=== PATIENT | female | born 1930 | race Caucasian/White ===

== ENCOUNTER 2018-04-05 02:34 | Inpatient (IN) | payer MEDICARE ==
[2018-04-05] VITALS (9 sets, daily range): BP systolic 122–164; BP diastolic 41–85
[~2018-04-05] VITALS: Ht 162.5 cm; Wt 67.2 kg
--- NOTE | ~2018-04-05 | PR ---
[place], [place] PROGRESS NOTE NAME: DARRON GARCIA UNIT #: [id number] ROOM: [facility] DOCTOR: BETY MILAN MD BIRTHDATE: [birth year] DOS: SUBJECTIVE: The patient is about the same, does not have any new complaints. She did have a fairly good night. Unfortunately, the vertebroplasty was not performed. OBJECTIVE: VITAL SIGNS: Graphic trend shows pressure 147/47, pulse of 58, respirations 18, temperature 97.5. LUNGS: Diminished breath sounds, clear. HEART: Regular with PVCs. ABDOMEN: Obese, soft. EXTREMITIES: Without any edema. Tenderness along the thoracic spine area. ASSESSMENT AND PLAN: 1. T7 compression fracture, which is new. Attempted vertebroplasty, but this was unsuccessful. Discussed with Dr. Plascencia in detail. We will try to arrange for vertebroplasty as an outpatient in another facility. 2. Enterobacter aerogenes. The patient is on Rocephin. 3. Adult failure to thrive, awaiting placement to rehab center. BETY MILAN MD CM:PNTRANS 0836 BETY MILAN MD 04/07/1843 interface
--- NOTE | ~2018-04-05 | DS ---
[place], [place] DISCHARGE SUMMARY NAME: DARRON GARCIA UNIT #: [id number] ROOM: [facility] DOCTOR: BETY MILAN MD BIRTHDATE: [birth year] DOS: To be discharged on 04/08/2018. HOSPITAL COURSE: The patient is [facility]. She is 87 years old, was going to the bathroom at night, had a fall and injured her back. She came into the Emergency Room, was evaluated and was diagnosed with the possibility of compression fracture and was admitted. After admission, she had an MRI of her back, which showed an acute T7 compression fracture. Dr. Plascencia was consulted. The patient was taken for a vertebroplasty, this was attempted, but was unsuccessful. The patient also had urine culture done, which showed Enterobacter aerogenes, which is sensitive to ceftriaxone that she is on. She is not having any new complaints. The pain is under fairly good control and her anxiety is also under control. Blood sugars are also not too bad, in the low 100s. The patient is stable and social service and PT/OT has been consulted and the patient has been accepted in [facility]. She will go there on Tuesday. My office will make arrangements for her to see Dr. Godinez as outpatient in [place] for vertebroplasty. The office will inform you about the exact date. DISCHARGE MEDICATIONS: [place] 7.5 one tablet twice a day, Xanax 0.25 twice a day p.r.n., Ceftin 250 twice daily for 5 days, metoprolol 25 b.i.d., aspirin 81 daily, lisinopril 20 daily, hydrochlorothiazide 12.5 daily, metformin 1000 b.i.d., citalopram 10 daily, pioglitazone 15 daily, glimepiride 1 mg daily, amlodipine 2.5 mg daily. DIET: ADA 1800, blood sugars to be checked daily. PT, OT consultation. Lidocaine patch for local application to the thoracic area. [place], [place] DISCHARGE SUMMARY NAME: DARRON GARCIA UNIT #: [id number] ROOM: [facility] DOCTOR: BETY MILAN MD BIRTHDATE: [birth year] BETY MILAN MD CM:LINDA [id number] BETY MILAN MD 04/17/18 1040 interface
--- NOTE | ~2018-04-05 | WRIGHTHP ---
[place], [place] PATIENT HISTORY AND PHYSICAL EXAM NAME: DARRON GARCIA UNIT #: [id number] ROOM: 501 DOCTOR: BETY MILAN MD BIRTHDATE: [birth year] DOS: 04/05/2018 HISTORY OF PRESENT ILLNESS: This patient is an 87-year-old. She was getting up and going to the bathroom and she fell down, was on the floor and had to call the family to get her up. She was brought to the Emergency Room and was admitted. She had a lot of back pain and when she came to the Emergency Room they noted that she had a possibility of T8 compression fracture. She does not have any complaints of chest pains, palpitations, abdominal pain, nausea, emesis. PAST MEDICAL HISTORY: Significant for; 1. Benign hypertension. 2. Type 2 diabetes mellitus. 3. Primary osteoarthritis, bilateral knee and hip replacements. 4. Generalized anxiety disorder. MEDICATIONS: She is on are glipizide, glimepiride, citalopram, hydrochlorothiazide, lisinopril, Anthony 7.5, metformin 1000 b.i.d., metoprolol 25 b.i.d., Actos 15 daily, simvastatin 40 daily. SOCIAL HISTORY: Nonsmoker. Does not use any alcohol. PHYSICAL EXAMINATION: GENERAL: She is awake and alert and oriented and some mild distress because of back pain. VITAL SIGNS: Graphic trend shows pressure 132/76, pulse of 70, respirations 18. LUNGS: Diminished breath sounds, clear. HEART: Regular. ABDOMEN: Obese, soft, nontender. EXTREMITIES: Without any edema. ASSESSMENT AND PLAN: 1. Possibility of an acute lumbago from a possibility of a T8 compression fracture. Awaiting further testing including MRI and possible vertebroplasty. 2. Type 2 diabetes mellitus. Discontinue glyburide. Continue Amaryl, Actos and check blood sugars q.i.d. with coverage. 3. Adult failure to thrive, may require PT, OT, but we will do that once we figure out whether there is an acute fracture or not. [place], [place] PATIENT HISTORY AND PHYSICAL EXAM NAME: DARRON GARCIA UNIT #: [id number] ROOM: [facility] DOCTOR: BETY MILAN MD BIRTHDATE: [birth year] BETY MILAN MD CM:DEBIS:PATIENT HISTORY AND PHYSICAL EXAMINATION 2 5 BETY MILAN MD 04/05/18955 interface
--- NOTE | ~2018-04-05 | PR ---
[place], [place] PROGRESS NOTE NAME: DARRON GARCIA UNIT #: [id number] ROOM: [facility] DOCTOR: BETY MILAN MD BIRTHDATE: [birth year] DOS: 04/06/2018 SUBJECTIVE: The patient is very emotional and teary eyed today. She did not get her Xanax as per family members. OBJECTIVE: VITAL SIGNS: Graphic trend shows a pressure of 119/70, pulse of 70, respirations 16, temperature 98.5. LUNGS: Diminished breath sounds. HEART: Regular. ABDOMEN: Obese, soft, nontender. EXTREMITIES: Without any edema. MICROBIOLOGY: Urine culture, heavy Gram-negative bacteria. RADIOLOGY: Thoracic spine x-ray, T8 compression fracture. Awaiting the MRI today. ASSESSMENT AND PLAN: 1. T8 compression fracture for vertebroplasty. Consultation of Interventional Radiology was ordered. 2. Benign hypertension, controlled. 3. Type 2 diabetes mellitus. Check blood sugars twice daily and coverage. 4. Generalized anxiety disorder. Start Xanax. BETY MILAN MD CM:PNTRANS 0845 2 BETY MILAN MD 04/07/184 interface
--- NOTE | ~2018-04-05 | EKG ---
[place], [place] ELECTROCARDIOGRAM REPORT NAME: DARRON GARCIA UNIT #: [id number] ROOM: [facility] DOCTOR: PIEROANY DRAFT REPORT BIRTHDATE: [birth year] [facility] Test Date: 2018-04-05 Test Time: 03:26:30 Pat Name: DARRON GARCIA Department: Room: [facility] Gender: F Grievance And Appeals Specialist: Lizbeth Farrar : 1930 Requested By: DILLAN RAINES Order Number: [id number] Reading MD: Nolan Dixon MD Measurements Intervals Madeline Rate: 54 P: 28 RI: 164 QRS: -15 QRSD: 94 T: 7 QT: 433 QTc: 411 Interpretive Statements Sinus rhythm Abnormal R-wave progression, early transition Left ventricular hypertrophy Electronically Signed On 04-05-2018 17:30:39 PST by Nolan Dixon MD CM:EKGRPT:ELECTROCARDIOGRAM REPORT [id number] DILLAN RAINES MD EPIPHANY DRAFT REPORT DILLAN RAINES MD
[~2018-04-05 02:34] MED LIST: ACETAMINOPHEN PO; ACIDOPHILUS1 CAP PO; ACYCLOVIR800 MG PO; AMARYL4 MG PO; AMOXIL500 MG PO; ASPIRIN81 M1 PO; CEFUROXIME AXE250 MG PO; CIPRO500 MG PO; CITALOPRAM10 MG PO; DAYPRO600 M1 PO; FERRACTIV IRON1 EACH PO; FLOMAX0.4 MG PO; GLIPIZIDE10 M2 PO; GLYBURIDE5 MG PO; HYDR12.5C PO; HYDROCODONE PO; LEVAQUIN750 MG PO; LISINOPRIL/HCTZ1 TA1 PO; LISINOPRIL/HCTZ1 TA4 PO; METFORMIN500 MG PO; METOPROLOL25 MG PO; MICRONASE5 MG PO; MULTI VITAMINS1 TAB PO; NORCO 325 MG-51 TAB PO; OSCAL,OYSTER S500 MG PO; PIOGLITAZONE HC15 MG PO; PRILOSEC20 M2 PO; PRINIVIL20 MG PO; SIMVASTATIN40 MG PO; TRAZODONE50 MG PO; XANAX0.5 MG PO
[2018-04-05 03:44] LABS: BASO % 0.2 % (0.0-1.0); EOS # 0.2 10*3/uL (0.0-0.4); HEMATOCRIT 35.2 % (37.0-47.0); HEMOGLOBIN 11.3 g/dl (12.0-16.0); LYMPH # 0.7 10*3/uL (1.3-4.4); LYMPH % 7.5 % (27.0-41.0); MEAN CELL VOLUME 93.1 fl (81.0-99.0); MEAN CORPUSCULAR HGB 29.9 pg (27.0-31.0); MEAN CORPUSCULAR HGB CONC 32.1 g/dl (33.0-37.0); MEAN PLATELET VOLUME 11.2 fl (9.6-12.3); MONO # 0.5 10*3/uL (0.1-1.0); MONO % 5.8 % (3.0-9.0); NEUT # 7.6 10*3/uL (2.3-7.9); NEUT % 83.8 % (47.0-73.0); PLATELET COUNT AUTOMATED 188 10*3/uL (130-400); RED BLOOD COUNT 3.78 10*6/uL (4.10-5.10); RED CELL DISTRI WIDTH 14.3 % (0-14.5); WHITE BLOOD COUNT 9.1 10*3/uL (4.8-10.8)
[2018-04-05 03:54] LABS: ACT PARTIAL THROMBO TIME 22.3 SECONDS (20.8-31.5); INTERNATIONAL NORM RATIO 0.9 (2.0-3.5)
[2018-04-05 04:03] LABS: ALBUMIN 3.7 gm/dl (3.1-4.5); ALKALINE PHOSPHATASE 44 U/L (45-117); BUN 32 mg/dl (7-24); CHLORIDE 109 mmol/L (98-107); LIPASE 279 U/L (73-393); SGOT/AST 17 IU/L (3-35); SGPT/ALT 22 U/L (12-78); SODIUM 143 mmol/L (136-145)
[2018-04-05 04:04] LABS: TROPONIN I < 0.015 ng/ml (<0.045)
--- NOTE | 2018-04-05 04:23 | NUR ---
PATIENT IN BED AWAKE AND TALKING WITH FAMILY AT BEDSIDE. VSS. RN WILL CONT TO MONITOR
[2018-04-05 04:41] LABS: BILIRUBIN NEGATIVE (NEGATIVE); BLOOD NEGATIVE (NEGATIVE); CLARITY CLEAR (CLEAR); COLOR YELLOW (YELLOW); GLUCOSE NEGATIVE (NEGATIVE); KETONE NEGATIVE (NEGATIVE); LEUKO ESTERASE TRACE (NEGATIVE); NITRITE POSITIVE (NEGATIVE); SPECIFIC GRAVITY 1.025 (1.005-1.030); UROBILINOGEN 0.2 E.U./dl (0.2-1.0)
[2018-04-05 05:14] LABS: BACTERIA 2+; RBC 0-2 rbc/hpf (0-2)
--- NOTE | 2018-04-05 07:34 | NUR ---
REPORT RECEIVED AT 0710 FROM NAVEED REYES. THIS PT IS AWAKE AND ALERT. HER COLOR IS FAIR,SKIN W/D. RESPIRATIONS ARE NON-LABORED. SHE TELLS ME THAT HER UPPER BACK PAIN HAS IMPROVED AFTER RX HAS BEEN GIVEN. SHE WILL BE ADMITTED,WAITING FOR BED PLACEMENT. PT IS AWARE OF THIS. MARGARET REYES
--- NOTE | 2018-04-05 08:45 | NUR ---
A 87YO FEMALE, admitted to , under the services of BETY Cooper MD with a diagnosis of SYNCOPE. Chief complaint is FELL AT HOME, PAIN BETWEEN SHOULDER BLADES, DIZZY/SOB WHEN WALKING. Patient arrived via stretcher from ER. Monitor applied. Initial assessment completed. Vital signs taken and recorded. BETY COOPER MD notified of admission to the unit. Orders received. See assessment for past medical history, medications and allergies. Patient and/or family oriented to unit. [facility] reviewed. Clothing/patient valuable form completed. RIAN NICE
--- NOTE | 2018-04-05 10:12 | NUR ---
MEDICATED WITH PRN PO NORCO FOR LOWER BACK PAIN.
--- NOTE | 2018-04-05 12:51 | NUR ---
PRN PO NORCO EFFECTIVE, PER PATIENT.
[2018-04-05] MEDS ORDERED: AMARYL1 M1 PO (13:15)
[2018-04-05] MEDS ORDERED: 'XANAX1 MG PO (13:16)
[2018-04-05] MEDS ORDERED: NORVASC2.5 MG PO (13:17)
--- NOTE | 2018-04-05 13:59 | NUR ---
MEDICATED WITH PRN PO NORCO FOR BACK PAIN.
--- NOTE | 2018-04-05 15:09 | NUR ---
PRN PO NORCO EFFECTIVE, PER PATIENT.
--- NOTE | 2018-04-05 18:00 | NUR ---
PATIENT HAD XRAYS OF T-SPINE TODAY, WILL HAVE MRI T SPINE TOMORROW, PER RADIOLOGY.
--- NOTE | 2018-04-05 18:15 | NUR ---
MEDICATED WITH PRN PO NORCO FOR BACK PAIN, STATES HURTS WHEN SHE BREATHES.
--- NOTE | 2018-04-05 19:20 | NUR ---
PRN PO NORCO EFFECTIVE, PER PATIENT.
--- NOTE | 2018-04-05 23:17 | NUR ---
PATIENT MEDICATED WITH NORCO PER PRN ORDER FOR C/O BACK PAIN. RATED BACK PAIN A 6-7/10 WITH 10 BEING THE WORST. SEE EMAR. REINFORCED USE OF CALL LIGHT
[2018-04-06] VITALS (10 sets, daily range): BP systolic 119–184; BP diastolic 32–92
--- NOTE | 2018-04-06 01:00 | NUR ---
PATIENT RESTING QUIETLY. NO FURTHER C/O VOICED.
--- NOTE | 2018-04-06 01:59 | NUR ---
24 HR chart check completed.
--- NOTE | 2018-04-06 07:35 | NUR ---
DARRON GARCIA [id number] Please refer to the physician's history and physical for past medical history, comorbid conditions, and allergies. Diagnosis: FRAIL ELDERLY,FALL AT HOME,NEAR SYNCOPE,COMPRESSIO Raul Score: 20,LOW OR NO RISK WOUND DESCRIPTIONS: Location of the wound: right forearm Type of wound: skin tear Thickness: Partial Size: 4.5cm x 5.5cm x 0.1cm Tunneling: none Undermining: none Sinus Tract: none Presence of Exudate: Sanguineous Amount: Light Color: Red Odor: None Periwound Skin Appearance: Normal Wound edges: approximated with 5 steristripts Pain (associated with wound): none at time of assessment How does patient state this happened? pt stated this happened when she fell at home patient wishes to care for this area at home and doesn't want any follow up appointments made. Patient stated she has doctor many of these in the past since her skin is so thin. Location of the wound: medial aspect of left 2nd toe Type of wound: unstageable Thickness: Full Size: 0.9cm x 0.8cm x <0.1cm Tunneling: none Undermining: none Sinus Tract: none Presence of Exudate: Amount: None Color: Brown Odor: None Periwound Skin Appearance: Normal Wound edges: closed Pain (associated with wound): none at time of assesment patient stated sometimes depending what shoes she wears causes it discomfort How does patient state this happened? pt stated she has been following with Dr. Davis and wants to continue following with them. She refused for podiatry to be put on her at this time and wants to follow up outpatient with he foot doctor. Surface the patient is resting on: Isoflex SKIN PREVENTION RECOMMENDATION: 1. Pressure redistribution support surface as appropriate 2. Elevate heels 3. Remove boots/TEDS every shift and reapply 4. Head of bed 30 degrees as tolerated 5. Assess nutrition and hydration 6. Manage moisture 7. Avoid the use of containment devices while in bed 8. Use absorptive products on surfaces limit layers of linens on bed 9. Turn and reposition every 1-2 hours in bed and every 1 hour in chair as tolerated 10. Weight shifts every 15 minutes while up in chair 11. Offloading with pillows or device to keep heels elevated off bed 12. Monitor skin at least every shift 13. Inspect under medical devices twice a day WOUND TREATMENT RECOMMENDATIONS: Skin tear guidelines: cleanse right forearm with nss and apply non-adhernt dressing and wrap with rolled gauze daily and prn for soiling. Unstageable guidelines: Apply sureprep to left 2nd toe and cover with bandaid for protection.
--- NOTE | 2018-04-06 08:13 | NUR ---
PATIENT REQUESTING PAIN MEDICATION FOR BACK PAIN RATED 7/10 ON 0/10 SCALE. NORCO ADMINISTERED PRESCRIBED. WILL MONITOR FOR EFFECTIVENESS.
--- NOTE | 2018-04-06 08:40 | NUR ---
PATIENT TRANSPORTED TO MRI.
--- NOTE | 2018-04-06 09:13 | NUR ---
PATIENT STATES THAT PAIN IS 4/10 ON 0/10 SCALE AFTER ADMINISTRATION OF NORCO.
--- NOTE | 2018-04-06 09:19 | NUR ---
PATIENT RETURNED FROM MRI.
--- NOTE | 2018-04-06 10:52 | NUR ---
PHYSICAL THERAPY PT orders received. PAtient with 50 % compression T7 and awaiting vertebralplasty. Will await to intiated PT until after vertebralpasty procedure. Thank you for this referral. Micaela Sanabria,PT
--- NOTE | 2018-04-06 12:00 | NUR ---
Math Teacher in to talk to patient. Patient states lives at home alone with her son living right down the street. There are basement steps in the home. Physician: Dr. Jessenia Alvarado Pharmacy: [facility] Home health services: She thinks she has had [facility] in the past Patient's level of ADLs: MINIMAL ASSIST Patient has working utilities: yes DME: cane, walker Follow-up physician's appointment after d/c: she prefers to make her own follow up appt after discharge Does patient want to access PORTAL?: no Discharge plan discussed with patient. She lives at home alone with her son living right down the street. She is independent in her ADLs and ambulates with either a walker or a cane. Discussed home health care services and she is agreeable if it is needed. When provided with a list of agencies she chose [facility]. When medically stable she will be discharged to home. MOHAN MURRAY
--- NOTE | 2018-04-06 14:42 | NUR ---
REPORT RECEIVED FROM RAAD IN SURGERY. PROCEDURE WAS UNABLE TO BE DONE- SEE SURGEON NOTES. PATIENT WAS IN AND OUT OF AFLUTTER WHILE PRE-OP HOLDING AND IN SURGERY. DIET CAN BE CONTINUED. WILL MONITOR.
--- NOTE | 2018-04-06 15:32 | NUR ---
PATIENT TRANSPORTED TO OR FOR SUGERY.
--- NOTE | 2018-04-06 15:40 | NUR ---
Shift chart check completed.
--- NOTE | 2018-04-06 21:11 | NUR ---
PATIENT MEDICATED WITH NORCO PER PRN ORDER FOR C/O BACK PAIN. RATED PAIN A 8/10 WITH 10 BEING THE WORST. SEE EMAR. REINFORCED USE OF CALL LIGHT.
[2018-04-07] VITALS: BP 147/47
--- NOTE | 2018-04-07 03:02 | NUR ---
24 HR chart check completed.
--- NOTE | 2018-04-07 07:40 | NUR ---
PHYSICAL THERAPY Nursing screen received. PT orders also received. Thank you. Micaela Sanabria,PT
--- NOTE | 2018-04-07 09:00 | NUR ---
Lead Software Tester in to see patient. No new needs or request at this time. Discussed [facility] and she is agreeable. Dr. Alvarado aware. community development planner notified.
--- NOTE | 2018-04-07 10:44 | NUR ---
PHYSICAL THERAPY PAtient evaluated on 5, full evaluation to follow. Continue with PT as per plan of care with fall, fx vertebra T7 ( to have kyhpoplsty out patient at another facility, failed attempt at this facility), alarms and acute debility. PAtient will require SNF for impaired mobility and pain in order to increase mobility for safe (I) home return at (I) prior level of function. PAtient is moderate complexity via chart review, tests and evaluation; 25455. Thank you for this referral. Micaela Sanabria,PT
--- NOTE | 2018-04-07 11:53 | NUR ---
patient referral [facility]ed to [facility], waiting on review.
--- NOTE | 2018-04-07 12:10 | NUR ---
PT GIVEN NORCO FOR C/O BACK PAIN, RATING IT 8/10. WILL MONITOR FOR EFFECTIVENESS. CALL LIGHT IN REACH.
[2018-04-07] MEDS ORDERED: NORCO 7.5-3251 EACH PO (12:31)
[2018-04-07] MEDS ORDERED: XANAX0.25 MG PO (12:31)
[2018-04-07] MEDS ORDERED: CEFUROXIME AXE250 MG PO (12:31)
--- NOTE | 2018-04-07 13:10 | NUR ---
KARENA EFFECTIVE PER PT.
--- NOTE | 2018-04-07 13:38 | NUR ---
patient [facility] to [facility]. hospital exemption completed. 3 night stay required. Patient ok to go tomorrow Tuesday03/08/18 if medically stable for discharge. However, patient will be waiting for a discharge at [facility] and then will have to wait for the room to be cleaned and prepared. DC later in the day, but call RS to verify room is ready first.
[2018-04-07 14:25] VITALS: BP 148/62
--- NOTE | 2018-04-07 15:00 | NUR ---
WAS NOTIFIED THAT PT WILL BE DISCHARGED ON 04/08/18 TO [facility]. MESSAGE RECEIVED TO CALL [facility] TO VERIFY THAT ROOM IS READY FOR PT BEFORE SHE IS SENT THERE.
--- NOTE | 2018-04-07 17:22 | NUR ---
BLOOD SUGAR OBTAINED, 143. NO COVERAGE NEEDED PER S/S. FAMILY AT BEDSIDE. PT SITTING UP IN BED, ALERT ORIENTED AND PLEASANT MOOD. RESPIRATIONS EASY AND UNLABORED. CALL LIGHT IN REACH.
--- NOTE | 2018-04-07 18:22 | NUR ---
PT C/O CONSTIPATION. DR MILAN NOTIFIED AND NEW ORDERS RECEIVED FOR COLACE 100 MG BID AND DULCOLAX TABLET ONE TIME NOW. MEDICATION GIVEN. PT C/O BACK PAIN. NORCO GIVEN AT THIS TIME. WILL MONITOR FOR EFFECTIVENESS. CALL LIGHT IN REACH.
[2018-04-07 20:00] VITALS: BP 140/70
--- NOTE | 2018-04-07 22:06 | NUR ---
PATIENT MEDICATED WITH XANAX AND ZOFRAN PER PRN ORDER FOR C/O FEELING ANXIOUS AND NAUSEATED. SEE EMAR. REINFORCED USE OF CALL LIGHT.
--- NOTE | 2018-04-07 23:50 | NUR ---
24 HR chart check completed.
[2018-04-08] VITALS: BP 150/64
--- NOTE | 2018-04-08 08:07 | NUR ---
PT ASSISTED TO BATHROOM AND BACK TO BED BY NURSE. PT GAIT STEADY WITH WALKER. PT C/O BACK PAIN. NORCO GIVEN AT THIS TIME. WILL MONITOR FOR EFFECTIVENESS. CALL LIGHT IN REACH.
[2018-04-08 08:10] VITALS: BP 158/64
--- NOTE | 2018-04-08 09:07 | NUR ---
KARENA EFFECTIVE PER PT.
[2018-04-08 12:00] VITALS: BP 153/70
--- NOTE | 2018-04-08 13:30 | NUR ---
PT REQUESTS PAIN MEDICINE BEFORE LEAVING FACILITY VIA EMS/TRANSPORTING TO [facility]. NORCO GIVEN AT THIS TIME. PT LEAVING FACILITY, WILL NOTIFY NURSE AT [facility] OF MEDICATION THAT WAS GIVEN.
--- NOTE | 2018-04-08 13:35 | NUR ---
Discharge instructions reviewed with patient/family. Patient receptive and verbalizes understanding. Follow-up care arranged. Written instructions given to patient/family. HARI HUNTER
== END 2018-04-08 13:30 | disposition other institution (70) | DRG 552 ==
LOC: ED 02:34 → EDHOLD 05:44 → 5E 05:44
PROVIDERS: Emergency Medicine Emergency Medical Services; ADMIT Internal Medicine
PROC: 00JV3ZZ Inspection of Spinal Cord, Percutaneous Approach (ICD-10-PCS; principal; 2018-04-06)
DX: S22.069A Unspecified fracture of T7-T8 vertebra, initial encounter for closed fracture (principal); I10 Essential (primary) hypertension; E11.9 Type 2 diabetes mellitus without complications; F41.1 Generalized anxiety disorder; Z96.653 Presence of artificial knee joint, bilateral; Z66 Do not resuscitate; Z51.5 Encounter for palliative care; Z96.643 Presence of artificial hip joint, bilateral; W18.30XA Fall on same level, unspecified, initial encounter; R62.7 Adult failure to thrive; B96.89 Other specified bacterial agents as the cause of diseases classified elsewhere; Y93.89 Activity, other specified; Y92.098 Other place in other non-institutional residence as the place of occurrence of the external cause; Y99.8 Other external cause status; Z87.440 Personal history of urinary (tract) infections; Z90.49 Acquired absence of other specified parts of digestive tract; Z82.49 Family history of ischemic heart disease and other diseases of the circulatory system; Z83.3 Family history of diabetes mellitus

== ENCOUNTER 2018-07-13 09:44 | Inpatient (IN) | payer MEDICARE ==
[~2018-07-13] VITALS: Ht 154.9 cm; Wt 65.8 kg
--- NOTE | ~2018-07-13 | DS ---
[place], [place] DISCHARGE SUMMARY NAME[id number] UN[facility] #: [id number] ROOM: 419 DOCTOR: BETY MILAN MD BIRTHDATE: [birth year] DOS: 07/17/2018 The patient is 87 years old, was admitted 07/13, discharged 07/17. DIAGNOSES: 1. Benign hypertension, poorly controlled. 2. Primary osteoarthritis, multiple joints. 3. Generalized anxiety. 4. Major depression, mild, recurrent. 5. 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 6. Postmenopausal osteoporosis. 7. Type 2 diabetes mellitus, non-insulin dependent. 8. Possible urinary tract infection. HOSPITAL COURSE: An 87-year-old comes in with complaints of dysuria, inability to void, nausea, emesis. The patient was seen in the Emergency Room and was admitted. She was started on IV antibiotics. She also had evidence of acute kidney injury, possibly from poor p.o. intake and emesis. Hydrochlorothiazide was discontinued. The patient was placed on lisinopril without a combination of hydrochlorothiazide. The patient continued to improve without any complaints. The patient was noticed to have elevated blood pressures. Further adjustments in medications were made. Amlodipine dosage was increased. The patient was discharged to home on 07/17. DISCHARGE MEDICATIONS: Glimepiride 1 mg daily, aspirin 81, citalopram 10, metformin 1000 b.i.d., metoprolol 25 b.i.d., amlodipine 5 daily, Xanax 0.25 b.i.d., BuSpar 5 b.i.d., lisinopril 20 daily. BETY MILAN MD CM:DISCHARG [id number] BETY MILAN MD 08/06/18 0711 interface
--- NOTE | ~2018-07-13 | PR ---
[place], [place] PROGRESS NOTE NAME: DARRON GARCIA UNIT #: [id number] ROOM: 419 DOCTOR: SHANI COELHO MD BIRTHDATE: [birth year] DOS: 07/15/2018 SUBJECTIVE: The patient is still complaining of some left lower quadrant pains and frequency of urine with burning. OBJECTIVE: GENERAL APPEARANCE: The patient is alert and oriented x 3, in no visible distress. VITAL SIGNS: Blood pressure 158/66, heart rate 79 beats per minute, breathing 20 times per minute, temperature 98.2 degrees Fahrenheit. HEENT AND NECK: Exam within normal limits. CARDIOVASCULAR SYSTEM: Heart rate is regular in rate and rhythm. S1 and S2 normally audible. LUNGS: Clear to auscultation. ABDOMEN: Soft, nontender. No obvious organomegaly. Bowel sounds are present. EXTREMITIES: Without significant cyanosis or edema. IMPRESSION: 1. The patient's urinary tract infection and urine culture is still pending, being still symptomatic and being treated with ceftriaxone. I will add Bactrim to the treatment because she is still symptomatic. 2. Benign essential hypertension, treated and controlled. Blood pressure is being monitored. She is on lisinopril and amlodipine along with metoprolol and hydralazine. 3. Generalized anxiety, treated with buspirone. 4. Major depression, recurrent, mild, treated with Celexa. SHANI COELHO MD CM:PNTRANS [phone] SHANI COEHLO MD 07/15/18 225 interface
--- NOTE | ~2018-07-13 | PR ---
[place], [place] PROGRESS NOTE NAME: DARRON GARCIA UNIT #: [id number] ROOM: 419 DOCTOR: SHANI COELHO MD BIRTHDATE: [birth year] DOS: 07/16/2018 SUBJECTIVE: The patient is feeling better with treatment, but she developed significant hypertension this morning for which she required treatment and following that she became hypotensive; now she is feeling better. OBJECTIVE: VITAL SIGNS: Blood pressure ranging between 140-190 systolic generally. GENERAL APPEARANCE: Generalized weakness. The patient is alert and oriented x 3, in no visible distress. HEENT AND NECK: Exam within normal limits. CARDIOVASCULAR SYSTEM: Heart rate is regular in rate and rhythm. S1 and S2 normally audible. LUNGS: Clear to auscultation. ABDOMEN: Soft, nontender. No obvious organomegaly. Bowel sounds are present. EXTREMITIES: Without significant cyanosis or edema. IMPRESSION: 1. Suspected urinary tract infection, treated with antibiotic. 2. Benign essential hypertension with elevated blood pressure this morning followed by hypotension. She remains on lisinopril and amlodipine along with metoprolol. If blood pressure remains normal, she can be discharged home tomorrow morning. 3. Generalized weakness, treated with buspirone. 4. Major depression, recurrent, mild, treated with Celexa. SHANI COELHO MD CM:PNTRANS [id number] SHANI COELHO MD 07/17/18 0004 interface
--- NOTE | ~2018-07-13 | WRIGHTHP ---
[place], [place] PATIENT HISTORY AND PHYSICAL EXAM [id number] UNIT #: [id number] ROOM: 419 DOCTOR: BETY MILAN MD BIRTHDATE: [birth year] DOS: 07/13/2018 HISTORY OF PRESENT ILLNESS: The patient is 87 years old, well known to us. She has had some dysuria and inability to void for couple of days prior to being admitted to the hospital. Yesterday, she was also nauseous, had a couple of emesis, so family brought her to the Emergency Room, knowing that she may have a UTI. She denies having any fever, chills, any chest pains or palpitations. Now, she has increased urinary frequency. This morning, she feels better. She is no longer nauseous and is ready to have a breakfast. PAST MEDICAL HISTORY: Significant for: 1. Type 2 diabetes mellitus. 2. Last hospitalization in March 2018 with compression fracture. 3. Chronic back pain. 4. 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 5. Generalized anxiety disorder. 6. Benign hypertension. 7. Type 2 diabetes mellitus. MEDICATIONS: That she is on are aspirin 81 daily, amlodipine 2.5 daily, BuSpar 5 b.i.d., citalopram 10 daily, glimepiride 1 mg daily, lisinopril and hydrochlorothiazide, U[place]and 7.5 b.i.d., metformin 1000 b.i.d., metoprolol 25 b.i.d., pioglitazone 15 daily. SOCIAL HISTORY: Nonsmoker, does not use any alcohol, lives at home. PHYSICAL EXAMINATION: GENERAL: She is awake and alert and oriented. VITAL SIGNS: Graphic trend shows a pressure 131/50, pulse of 57, respirations 18, temperature 97.6. LUNGS: Clear. HEART: Regular. ABDOMEN: Obese, soft, nontender. EXTREMITIES: Without any edema. ASSESSMENT AND PLAN: 1. The patient admitted with dysuria, difficulty with urination, most likely has underlying urinary tract infection. The patient has been admitted. Intravenous antibiotics have been ordered. Urine culture has been sent. I will change antibiotic depending on the urine culture results. 2. Acute kidney injury, most likely from dehydration. The patient was nauseous and had poor appetite and had emesis before she came in. We will also consider discontinuing the hydrochlorothiazide. 3. Type 2 diabetes mellitus, controlled. 4. Benign hypertension, controlled. We will avoid nephrotoxic meds. [place], [place] PATIENT HISTORY AND PHYSICAL EXAM NAME: DARRON GARCIA UNIT #: [id number] ROOM: [facility] DOCTOR: BETY MILAN MD BIRTHDATE: [birth year] BETY MILAN MD CM:HISPHYS:PATIENT HISTORY AND PHYSICAL EXAMINATION 7 5 BETY MILAN MD 07/14/18916 interface
[2018-07-13 09:44] VITALS: BP 164/56
[~2018-07-13 09:44] MED LIST changes: +'XANAX1 MG PO; +AMARYL1 M1 PO; +NORCO 7.5-3251 EACH PO; +NORVASC2.5 MG PO; +XANAX0.25 MG PO
[2018-07-13 10:17] LABS: BASO % 0.3 % (0.0-1.0); EOS # 0.2 10*3/uL (0.0-0.4); EOS % 1.7 % (1.0-4.0); HEMATOCRIT 40.4 % (37.0-47.0); HEMOGLOBIN 12.6 g/dl (12.0-16.0); LYMPH # 0.9 10*3/uL (1.3-4.4); LYMPH % 8.8 % (27.0-41.0); MEAN CELL VOLUME 94.4 fl (81.0-99.0); MEAN CORPUSCULAR HGB 29.4 pg (27.0-31.0); MEAN CORPUSCULAR HGB CONC 31.2 g/dl (33.0-37.0); MEAN PLATELET VOLUME 10.7 fl (9.6-12.3); MONO # 0.5 10*3/uL (0.1-1.0); MONO % 5.3 % (3.0-9.0); NEUT # 8.2 10*3/uL (2.3-7.9); NEUT % 83.5 % (47.0-73.0); PLATELET COUNT AUTOMATED 226 10*3/uL (130-400); RED BLOOD COUNT 4.28 10*6/uL (4.10-5.10); RED CELL DISTRI WIDTH 14.8 % (0-14.5); WHITE BLOOD COUNT 9.8 10*3/uL (4.8-10.8)
[2018-07-13 10:24] LABS: BILIRUBIN NEGATIVE (NEGATIVE); BLOOD NEGATIVE (NEGATIVE); CLARITY SL CLOUDY (CLEAR); COLOR YELLOW (YELLOW); GLUCOSE NEGATIVE (NEGATIVE); KETONE TRACE (NEGATIVE); LEUKO ESTERASE NEGATIVE (NEGATIVE); NITRITE NEGATIVE (NEGATIVE); PH 5.5 (5.0-9.0); SPECIFIC GRAVITY 1.025 (1.005-1.030); UROBILINOGEN 0.2 E.U./dl (0.2-1.0)
--- NOTE | 2018-07-13 10:26 | NUR ---
WOUNDS: NONE. PT DENIES. THERE IS A SKIN CORN PRESENT WHICH OT STATES HER FOOT DR MONITORS MONTHLY AND IT IS NOT OPEN OR CRACKED. CORN IS BETWEEN LEFT GREAT TOE AND SECOND TOE.
[2018-07-13 10:32] LABS: ALBUMIN 4.5 gm/dl (3.1-4.5); ALKALINE PHOSPHATASE 49 U/L (45-117); BUN 26 mg/dl (7-24); CHLORIDE 101 mmol/L (98-107); CREATININE 1.31 mg/dL (0.55-1.02); POTASSIUM 4.1 mmol/L (3.5-5.1); SGOT/AST 21 IU/L (3-35); SGPT/ALT 20 U/L (12-78); SODIUM 136 mmol/L (136-145); TOTAL PROTEIN 7.6 gm/dL (6.4-8.2)
[2018-07-13 10:50] LABS: BACTERIA 2+; URIC ACID CRYSTALS 1+
[2018-07-13 11:05] VITALS: BP 160/54
[2018-07-13 12:09] VITALS: BP 146/70
[2018-07-13] MEDS ORDERED: BUSPAR5 MG PO (12:25)
--- NOTE | 2018-07-13 12:37 | NUR ---
DR. MILAN' OFFICE TO GIVE HER MESSAGE THAT PATIENT IS ON THE 4TH FLOOR FOR ADMISSION.
[2018-07-13 16:00] VITALS: BP 127/99
[2018-07-13 20:00] VITALS: BP 147/49
[2018-07-13 20:10] VITALS: BP 132/72
[2018-07-14] VITALS: BP 131/50
--- NOTE | 2018-07-14 02:20 | NUR ---
24 HR chart check completed.
[2018-07-14 06:06] LABS: BUN 18 mg/dl (7-24); CHLORIDE 107 mmol/L (98-107); POTASSIUM 4.1 mmol/L (3.5-5.1); SODIUM 140 mmol/L (136-145)
[2018-07-14 07:13] LABS: BASO % 0.4 % (0.0-1.0); EOS # 0.2 10*3/uL (0.0-0.4); LYMPH # 0.9 10*3/uL (1.3-4.4); LYMPH % 18.4 % (27.0-41.0); MEAN CELL VOLUME 94.1 fl (81.0-99.0); MEAN CORPUSCULAR HGB 29.5 pg (27.0-31.0); MEAN CORPUSCULAR HGB CONC 31.3 g/dl (33.0-37.0); MEAN PLATELET VOLUME 11.7 fl (9.6-12.3); MONO # 0.6 10*3/uL (0.1-1.0); MONO % 12.4 % (3.0-9.0); NEUT % 63.4 % (47.0-73.0); RED BLOOD COUNT 3.56 10*6/uL (4.10-5.10); RED CELL DISTRI WIDTH 14.8 % (0-14.5); WHITE BLOOD COUNT 4.8 10*3/uL (4.8-10.8)
[2018-07-14 07:20] LABS: HEMATOCRIT 33.5 % (37.0-47.0); HEMOGLOBIN 10.5 g/dl (12.0-16.0); PLATELET COUNT AUTOMATED 157 10*3/uL (130-400)
--- NOTE | 2018-07-14 09:00 | NUR ---
Indirect Fire Infantryman in to talk to patient. Patient states lives at home alone with her son living right up the street. There are basement steps in the home. Physician: Dr. Jessenia Alvarado Pharmacy: mail order [facility] Home health services: [facility] previously Patient's level of ADLs: MINIMAL ASSIST Patient has working utilities: yes DME: cane, walker (she doesn't use them) Follow-up physician's appointment after d/c: she prefers to make her own follow up appt after discharge Does patient want to access PORTAL?: no Discharge plan discussed with patient. She lives at home alone with her son living right up the street. She is independent in her ADLs and ambulation. Discussed home health care services she denies any home needs at this time. She states home health just discharged her within the last couple of weeks. When medically stable she will be discharged to home. MOHAN MURRAY
[2018-07-14 12:00] VITALS: BP 103/88
[2018-07-14 16:00] VITALS: BP 147/70
--- NOTE | 2018-07-14 19:30 | NUR ---
24 HOUR CHART CHECK COMPLETE.
[2018-07-14 20:00] VITALS: BP 147/59
[2018-07-15] VITALS: BP 142/80
[2018-07-15 08:00] VITALS: BP 174/88
[2018-07-15 12:00] VITALS: BP 158/66
[2018-07-15 16:00] VITALS: BP 143/79
--- NOTE | 2018-07-15 19:30 | NUR ---
24 HOUR CHART CHECK COMPLETE.
[2018-07-15 20:00] VITALS: BP 153/71
[2018-07-16] VITALS: BP 173/75
[2018-07-16 00:40] VITALS: BP 160/80
[2018-07-16 06:50] VITALS: BP 190/88
--- NOTE | 2018-07-16 07:09 | NUR ---
TALKED TO DR COELHO REGARDING A BP READING OF 190/88. ADVISED TO ADMINISTER 1000 NORVASC AND LISINOPRIL NOW.
[2018-07-16 08:00] VITALS: BP 140/84
[2018-07-16 16:00] VITALS: BP 144/64
[2018-07-17] VITALS: BP 158/59
[2018-07-17 07:07] VITALS: BP 166/60
[2018-07-17 08:00] VITALS: BP 150/50
[2018-07-17] MEDS ORDERED: LISINOPRIL20 MG PO (08:21)
[2018-07-17] MEDS ORDERED: CEFUROXIME AXE250 MG PO (08:21)
[2018-07-17] MEDS ORDERED: AMLODIPINE BESYL5 MG PO (08:23)
--- NOTE | 2018-07-17 09:00 | NUR ---
Dance Entertainer in to see patient. No new needs or request at this time. She denies any home needs. When medically stable she will be discharged to home.
[2018-07-17 09:48] LABS: BASO % 0.3 % (0.0-1.0); EOS # 0.2 10*3/uL (0.0-0.4); EOS % 2.7 % (1.0-4.0); HEMATOCRIT 35.9 % (37.0-47.0); HEMOGLOBIN 11.3 g/dl (12.0-16.0); LYMPH # 0.8 10*3/uL (1.3-4.4); LYMPH % 11.1 % (27.0-41.0); MEAN CELL VOLUME 93.2 fl (81.0-99.0); MEAN CORPUSCULAR HGB 29.4 pg (27.0-31.0); MEAN CORPUSCULAR HGB CONC 31.5 g/dl (33.0-37.0); MEAN PLATELET VOLUME 11.2 fl (9.6-12.3); MONO # 0.7 10*3/uL (0.1-1.0); MONO % 8.7 % (3.0-9.0); NEUT # 5.8 10*3/uL (2.3-7.9); NEUT % 76.9 % (47.0-73.0); PLATELET COUNT AUTOMATED 193 10*3/uL (130-400); RED BLOOD COUNT 3.85 10*6/uL (4.10-5.10); RED CELL DISTRI WIDTH 14.9 % (0-14.5); WHITE BLOOD COUNT 7.5 10*3/uL (4.8-10.8)
--- NOTE | 2018-07-17 11:36 | NUR ---
Discharge instructions reviewed with patient/family. Patient receptive and verbalizes understanding. Follow-up care arranged. Written instructions given to patient/family. LAURENCE HANSEN
== END 2018-07-17 11:39 | disposition home or self-care (01) | DRG 689 ==
LOC: ED 09:44 → EDHOLD 11:19 → 4E 11:19
PROVIDERS: Nurse Practitioner Family; ADMIT Internal Medicine
DX: N39.0 Urinary tract infection, site not specified (principal); N17.0 Acute kidney failure with tubular necrosis; I10 Essential (primary) hypertension; E86.0 Dehydration; E11.9 Type 2 diabetes mellitus without complications; M17.10 Unilateral primary osteoarthritis, unspecified knee; M16.10 Unilateral primary osteoarthritis, unspecified hip; G89.29 Other chronic pain; Z96.649 Presence of unspecified artificial hip joint; F41.1 Generalized anxiety disorder; Z79.84 Long term (current) use of oral hypoglycemic drugs; Z82.49 Family history of ischemic heart disease and other diseases of the circulatory system; Z83.3 Family history of diabetes mellitus; Z87.81 Personal history of (healed) traumatic fracture

== ENCOUNTER 2019-03-09 09:47 | Inpatient (IN) | payer MEDICARE ==
[~2019-03-09] VITALS: Ht 154.9 cm; Wt 65.3 kg
[~2019-03-09 09:47] MED LIST changes: +AMLODIPINE BESYL5 MG PO; +BUSPAR5 MG PO; +LISINOPRIL20 MG PO
[2019-03-09 09:55] VITALS: BP 200/70
[2019-03-09 11:10] VITALS: BP 168/62
[2019-03-09 11:22] LABS: BASO % 0.3 % (0.0-1.0); EOS # 0.2 10*3/uL (0.0-0.4); EOS % 2.2 % (1.0-4.0); HEMATOCRIT 38.8 % (37.0-47.0); HEMOGLOBIN 12.2 g/dl (12.0-16.0); LYMPH # 1.1 10*3/uL (1.3-4.4); LYMPH % 12.2 % (27.0-41.0); MEAN CELL VOLUME 91.9 fl (81.0-99.0); MEAN CORPUSCULAR HGB 28.9 pg (27.0-31.0); MEAN CORPUSCULAR HGB CONC 31.4 g/dl (33.0-37.0); MONO # 0.6 10*3/uL (0.1-1.0); MONO % 7.4 % (3.0-9.0); NEUT # 6.7 10*3/uL (2.3-7.9); NEUT % 77.7 % (47.0-73.0); PLATELET COUNT AUTOMATED 212 10*3/uL (130-400); RED BLOOD COUNT 4.22 10*6/uL (4.10-5.10); RED CELL DISTRI WIDTH 14.4 % (0-14.5); WHITE BLOOD COUNT 8.6 10*3/uL (4.8-10.8)
[2019-03-09 11:32] LABS: ACT PARTIAL THROMBO TIME 29.2 SECONDS (20.0-32.1); INTERNATIONAL NORM RATIO 0.9 (2.0-3.5)
[2019-03-09 11:40] LABS: ALBUMIN 3.6 gm/dl (3.1-4.5); ALKALINE PHOSPHATASE 63 U/L (45-117); BUN 18 mg/dl (7-24); CHLORIDE 111 mmol/L (98-107); LIPASE 114 U/L (73-393); POTASSIUM 4.6 mmol/L (3.5-5.1); SGOT/AST 20 IU/L (3-35); SGPT/ALT 25 U/L (12-78); SODIUM 141 mmol/L (136-145)
[2019-03-09 11:44] LABS: TROPONIN I < 0.015 ng/ml (<0.045)
--- NOTE | 2019-03-09 11:50 | NUR ---
CRITICAL LACTIC ACID LEVEL OF 2.3. JENNIE WAS NOTIFIED.
[2019-03-09 12:52] LABS: BILIRUBIN NEGATIVE (NEGATIVE); BLOOD TRACE-INTACT (NEGATIVE); CLARITY CLEAR (CLEAR); COLOR YELLOW (YELLOW); GLUCOSE NEGATIVE (NEGATIVE); KETONE NEGATIVE (NEGATIVE); LEUKO ESTERASE NEGATIVE (NEGATIVE); NITRITE NEGATIVE (NEGATIVE); PH 5.5 (5.0-9.0); UROBILINOGEN 0.2 E.U./dl (0.2-1.0)
[2019-03-09 15:48] VITALS: BP 157/62
[2019-03-09 16:00] VITALS: BP 194/84
[2019-03-09 16:18] VITALS: BP 194/84
[2019-03-09] MEDS ORDERED: AMLODIPINE BES2.5 MG PO (17:35)
[2019-03-09] MEDS ORDERED: MULTIPLE VITAM1 EAC1 PO (17:38)
[2019-03-09] MEDS ORDERED: SIMVASTATIN40 MG PO (17:38)
--- NOTE | 2019-03-09 18:32 | NUR ---
CALL PLACED TO DR. MARI REVIEWED MEDICATIONS, AND CONTINUED ALL EXCEPT FOR STATIN, MULTIVITE AND ASA, PER DR. COELHO, ALTHOUGH PATIENT IS A DNR CC, SHE NEEDS TELEMETRY TO SEE IF FALLS AND DIZZININESS ARE CARDIC RELATED.
[2019-03-09 20:00] VITALS: BP 152/83
--- NOTE | 2019-03-09 21:55 | NUR ---
PATIENT C/O HEADACHE ORDER RECEIVED AND TYLENOL ADMINISTERED.
--- NOTE | 2019-03-09 22:55 | NUR ---
PATIENT REPORTS HEADACH MUCH IMPROVED SINCE HAVING TYLENOL.
--- NOTE | 2019-03-09 23:00 | NUR ---
ASSUMED CARE FOR THIS PT AT THIS TIME. PT DENIES DIZZINESS W/CHANGE OF PLANE. PT STATES SHE HAS BLE WEAKNESS. BED ALARM ON W/WHEELS LOCKED. CALL LIGHT IN REACH.
[2019-03-10 08:00] VITALS: BP 170/80
--- NOTE | 2019-03-10 09:44 | NUR ---
Section Crews Activities Clerk in to talk to patient. Patient states lives at HOME with ALONE. There are FEW steps in the home. Physician: BJORN Pharmacy: [facility] Home health services: NONE Patient's level of ADLs: INDEPENDENT Patient has working utilities: YES DME: CANE AND WALKER IF NEEDED Follow-up physician's appointment after d/c: WILL BE MADE BY HOSPITALIST NURSE DIRECTOR ON DISCHARGE Does patient want to access PORTAL?: NO Discharge plan PT LIVES AT HOME ALONE WITH HER SON LOOKING IN ON HER EVERY DAY. TALKED WITH PT ABOUT HOME HEALTH BUT SHE DECLINES AT THIS TIME. STATES SHE PLANS TO RETURN HOME WHEN MEDICALLY STABLE WITH HER SONS HELP. WILL CONTINUE TO FOLLOW. STATES SHE WILL HAVE A RIDE HOME.. HELENE ENGEL
[2019-03-10] MEDS ORDERED: VISTARIL25 MG PO (10:30)
[2019-03-10 12:00] VITALS: BP 160/90; BP 164/90
--- NOTE | 2019-03-10 13:04 | NUR ---
DR COELHO CALLED AND NOTIFIED OF BP NO NEW ORDERS RECIEVED
[2019-03-10 16:00] VITALS: BP 184/70
--- NOTE | 2019-03-10 18:40 | NUR ---
PT ASSESSMENT COMPLETE AT THIS TIME. PT HAS NO COMPLAINTS AT THE TIME, AND STATES THAT SHE DOES NOT FEEL DIZZY AT THE MOMENT. WILL CONTINUE TO MOINTOR, CALL LIGHT WITHIN REACH
[2019-03-10 20:00] VITALS: BP 144/59
[2019-03-11] VITALS: BP 188/65
--- NOTE | 2019-03-11 01:14 | NUR ---
24 HR chart check completed.
--- NOTE | 2019-03-11 04:30 | NUR ---
Patient sleeping. Respirations relaxed and easy. Siderails up . [place] on. OSMAR TURNER
[2019-03-11 08:00] VITALS: BP 176/82
--- NOTE | 2019-03-11 08:08 | NUR ---
PT RESTING IN BED/ NO DISTRESS NOTED. WILL MONITOR
[2019-03-11 12:00] VITALS: BP 172/68
--- NOTE | 2019-03-11 15:58 | NUR ---
PT REQUESTED AND GIVEN TYLENOL FOR C/O NECK PAIN PT RATES PAIN 5/10 WILL MONITOR FAMILY AT BEDSIDE
[2019-03-11 16:00] VITALS: BP 179/69
[2019-03-11 20:00] VITALS: BP 147/55
[2019-03-12] VITALS: BP 146/65
--- NOTE | 2019-03-12 02:23 | NUR ---
24 HR chart check completed.
--- NOTE | 2019-03-12 03:22 | NUR ---
PATIENT SLEEPING, NO DISTRESS NOTED. WILL MONITOR
[2019-03-12 08:00] VITALS: BP 178/72
--- NOTE | 2019-03-12 08:06 | NUR ---
DARRON GARCIA [id number] Please refer to the physician's history and physical for past medical history, comorbid conditions, and allergies. Diagnosis: SYNCOPE Raul Score: 19,LOW OR NO RISK WOUND DESCRIPTIONS: Wound Number: 1 Location of the wound: left elbow Type of wound: skin tear Thickness: Partial Size: 2.5cm x 1.5cm x <0.1cm Tunneling: none Undermining: none Sinus Tract: none Presence of Exudate: none Amount: None Color: Red Odor: None Periwound Skin Appearance: Normal Wound edges: approximated with 3 steristripts Pain (associated with wound): none at time of assessment How does patient state this happened? pt stated she bump her arm and this happened because her skin is to thin and doesn't have much left Wound Number: 2 Location of the wound: right upper arm Type of wound: skin tear Thickness: Partial Size: 2.0cm x 3.6cm x <0.1cm Tunneling: none Undermining: none Sinus Tract: none Presence of Exudate: none Amount: None Color: Red Odor: None Periwound Skin Appearance: Normal Wound edges: approximated with 3 steristripts Pain (associated with wound): none at time of assessment How does patient state this happened? pt stated she bump her arm and this happened because her skin is to thin and doesn't have much left Surface the patient is resting on: Isoflex SKIN PREVENTION RECOMMENDATION: 1. Pressure redistribution support surface as appropriate 2. Elevate heels 3. Remove boots/TEDS every shift and reapply 4. Head of bed 30 degrees as tolerated 5. Assess nutrition and hydration 6. Manage moisture 7. Avoid the use of containment devices while in bed 8. Use absorptive products on surfaces limit layers of linens on bed 9. Turn and reposition every 1-2 hours in bed and every 1 hour in chair as tolerated 10. Weight shifts every 15 minutes while up in chair 11. Offloading with pillows or device to keep heels elevated off bed 12. Monitor skin at least every shift 13. Inspect under medical devices twice a day WOUND TREATMENT RECOMMENDATIONS: Maintain steristripts until they fall off to left elbow and right upper arm.
--- NOTE | 2019-03-12 08:09 | NUR ---
PHYSICAL THERAPY Screen received as well as orders for PT will follow thank you Kristine Yoder PT
--- NOTE | 2019-03-12 08:15 | NUR ---
Discussed discharge planning with Dr. Alvarado who states she spoke to the patient and her son regarding SNF and both are agreeable and chose [facility]. materials planner notified.
--- NOTE | 2019-03-12 08:41 | NUR ---
Nursing screen received and chart reviewed. Patient admitted with recent falls when she passed out. She is 88 yrs old and lives alone and was indep prior to falls. If patient should have a decline in ADLs refer to OT. Thank you. Joseline Reyna OTR/Elena
--- NOTE | 2019-03-12 08:52 | NUR ---
PT RESTING IN BED. NO DISTRESS NOTED. WILL MONITOR
--- NOTE | 2019-03-12 09:00 | NUR ---
Perl Developer in to see patient. Discussed short term rehab and she is agreeable. When provided with a list of facilities she chose [facility]. She states her one son lives in [place] and her other son is going on vacation to [place] tomorrow so she would be home alone unless she went and stayed with her son in [place]. tool and production planner notified. When medically stable and accepted she will be discharged to [facility].
--- NOTE | 2019-03-12 11:58 | NUR ---
PHYSICAL THERAPY Kan completed moderate level of complexity 40990 recomend SNF at discharge. PT to work on transfers,amb with AD, strength, balance/safety. Kristine Yoder PT
[2019-03-12 12:00] VITALS: BP 156/68
--- NOTE | 2019-03-12 12:59 | NUR ---
Patient requesting referral to [facility]. Contacted facility and faxed referral. 3 night stay complete. Patient can go today if accepted. Waiting on review.
[2019-03-12] MEDS ORDERED: AMLODIPINE BESYL5 MG PO (13:54)
--- NOTE | 2019-03-12 14:31 | NUR ---
patient accepted to [facility], 3 night stay complete, passrr complete. patient ok to go when medically stable for discharge.
--- NOTE | 2019-03-12 15:33 | NUR ---
Nutritional Support Services Note: Appetite is good for meals, she is eating 100% of NCS diet as ordered. Skin tears noted to elbows. Will provide a night snack. Staff to continue to encourage intake of high protein foods. Will follow as needed. No other nutrition intervention needed at this time. Aleisha Reed Rdn Ld
--- NOTE | 2019-03-12 15:49 | NUR ---
PT REFUSED DC WOUND PHOTOS OF BILATERAL ELBOWS
--- NOTE | 2019-03-12 15:59 | NUR ---
REPORT CALLED TO [facility] SPOKE WITH ASHISH
[2019-03-12 16:13] VITALS: BP 140/74
--- NOTE | 2019-03-12 16:24 | NUR ---
Discharge instructions reviewed with patient/family. Patient receptive and verbalizes understanding. Follow-up care arranged. Written instructions given to patient/family. IV REMOVED, GRANDDAUGHTER HERE TO TAKE PATIENT TO [facility]IOR [facility]IV[facility]. PATIENT OFF FLOOR VIA WHEELCHAIR. INOCENCIO TEE
== END 2019-03-12 16:25 | disposition other institution (70) | DRG 312 ==
LOC: ED 09:47 → EDHOLD 14:27 → 4E 14:27
PROVIDERS: Physician Assistant; ADMIT Internal Medicine
DX: R55 Syncope and collapse (principal); F33.0 Major depressive disorder, recurrent, mild; I10 Essential (primary) hypertension; R26.9 Unspecified abnormalities of gait and mobility; E11.9 Type 2 diabetes mellitus without complications; F41.1 Generalized anxiety disorder; Z66 Do not resuscitate; M15.8 Other polyosteoarthritis; M47.896 Other spondylosis, lumbar region; Z91.81 History of falling

== ENCOUNTER 2019-06-30 09:17 | Emergency (ER) | payer MEDICARE ==
[~2019-06-30] VITALS: Wt 63.5 kg
[~2019-06-30 09:17] MED LIST changes: +AMLODIPINE BES2.5 MG PO; +MULTIPLE VITAM1 EAC1 PO; +VISTARIL25 MG PO
[2019-06-30 10:08] LABS: BILIRUBIN NEGATIVE (NEGATIVE); BLOOD 1+ (NEGATIVE); CLARITY SL CLOUDY (CLEAR); COLOR YELLOW (YELLOW); GLUCOSE NEGATIVE (NEGATIVE); KETONE NEGATIVE (NEGATIVE); LEUKO ESTERASE TRACE (NEGATIVE); NITRITE NEGATIVE (NEGATIVE); PH 6.5 (5.0-9.0); UROBILINOGEN 0.2 E.U./dl (0.2-1.0)
[2019-06-30 10:09] LABS: BASO % 0.3 % (0.0-1.0); EOS # 0.2 10*3/uL (0.0-0.4); EOS % 2.5 % (1.0-4.0); HEMATOCRIT 38.6 % (37.0-47.0); LYMPH # 0.7 10*3/uL (1.3-4.4); LYMPH % 9.5 % (27.0-41.0); MEAN CELL VOLUME 90.2 fl (81.0-99.0); MEAN CORPUSCULAR HGB 28.3 pg (27.0-31.0); MEAN CORPUSCULAR HGB CONC 31.3 g/dl (33.0-37.0); MEAN PLATELET VOLUME 10.4 fl (9.6-12.3); MONO # 0.5 10*3/uL (0.1-1.0); MONO % 6.4 % (3.0-9.0); NEUT # 6.2 10*3/uL (2.3-7.9); NEUT % 80.9 % (47.0-73.0); PLATELET COUNT AUTOMATED 226 10*3/uL (130-400); RED BLOOD COUNT 4.28 10*6/uL (4.10-5.10); RED CELL DISTRI WIDTH 13.2 % (0-14.5); WHITE BLOOD COUNT 7.7 10*3/uL (4.8-10.8)
[2019-06-30 10:11] LABS: BACTERIA 1+
[2019-06-30 10:23] LABS: BUN 20 mg/dl (7-24); CHLORIDE 108 mmol/L (98-107); CREATININE 0.98 mg/dL (0.55-1.02); POTASSIUM 4.5 mmol/L (3.5-5.1); SODIUM 139 mmol/L (136-145)
[2019-06-30 11:08] VITALS: BP 132/63
== END 2019-06-30 11:45 | disposition home or self-care (01) ==
LOC: ED 09:17
PROVIDERS: Emergency Medicine
DX: R26.89 Other abnormalities of gait and mobility (principal); R55 Syncope and collapse; I10 Essential (primary) hypertension; E11.9 Type 2 diabetes mellitus without complications; F41.9 Anxiety disorder, unspecified; Z79.899 Other long term (current) drug therapy; Z79.84 Long term (current) use of oral hypoglycemic drugs; Z79.2 Long term (current) use of antibiotics

== ENCOUNTER → 2019-08-21 | Outpatient (CLI) | payer MEDICARE | END | disposition home or self-care (01) | LOC: RAD 13:50 | DX: M16.12 Unilateral primary osteoarthritis, left hip (principal); M85.88 Other specified disorders of bone density and structure, other site ==

== ENCOUNTER → 2019-11-28 | Outpatient (CLI) | payer MEDICARE | END | disposition home or self-care (01) | LOC: RAD 12:05 | PROVIDERS: ATTEND Internal Medicine | DX: R06.02 Shortness of breath (principal); I70.0 Atherosclerosis of aorta ==

== ENCOUNTER 2019-12-12 12:54 | Inpatient (IN) | payer MEDICARE ==
[~2019-12-12] VITALS: Ht 154.9 cm; Wt 66.4 kg
[2019-12-12 13:08] VITALS: BP 145/59
[2019-12-12 13:30] LABS: BASO % 0.4 % (0.0-1.0); EOS # 0.2 10*3/uL (0.0-0.4); EOS % 1.8 % (1.0-4.0); HEMATOCRIT 37.1 % (37.0-47.0); LYMPH # 1.1 10*3/uL (1.3-4.4); LYMPH % 13.5 % (27.0-41.0); MEAN CELL VOLUME 92.5 fl (81.0-99.0); MEAN CORPUSCULAR HGB 28.4 pg (27.0-31.0); MEAN CORPUSCULAR HGB CONC 30.7 g/dl (33.0-37.0); MEAN PLATELET VOLUME 11.1 fl (9.6-12.3); MONO # 0.7 10*3/uL (0.1-1.0); MONO % 7.8 % (3.0-9.0); NEUT # 6.4 10*3/uL (2.3-7.9); NEUT % 76.1 % (47.0-73.0); PLATELET COUNT AUTOMATED 206 10*3/uL (130-400); RED BLOOD COUNT 4.01 10*6/uL (4.10-5.10); RED CELL DISTRI WIDTH 14.7 % (0-14.5); WHITE BLOOD COUNT 8.4 10*3/uL (4.8-10.8)
[2019-12-12 13:41] LABS: CREATININE 1.09 mg/dL (0.55-1.02); POTASSIUM 4.5 mmol/L (3.5-5.1)
[2019-12-12 13:43] LABS: ACT PARTIAL THROMBO TIME 28.2 SECONDS (20.0-32.1)
[2019-12-12 14:21] LABS: BILIRUBIN Negative (Negative); BLOOD Negative (Negative); CLARITY Clear (Clear); COLOR Yellow (Yellow); GLUCOSE Negative (Negative); KETONE Trace (Negative); LEUKO ESTERASE Negative (Negative); NITRITE Negative (Negative); SPECIFIC GRAVITY 1.025 (1.001-1.030); UROBILINOGEN 0.2 E.U./dl (0.0-1.0)
[2019-12-12 14:40] LABS: BACTERIA 1+; RBC 0-2 rbc/hpf (0-2)
[2019-12-12 14:55] VITALS: BP 170/96
[2019-12-12] MEDS ORDERED: NORCO 7.5-3251 EACH PO (14:56)
[2019-12-12] MEDS ORDERED: ACTOS15 M1 PO (14:56)
[2019-12-12 16:00] VITALS: BP 159/71
[2019-12-12 20:00] VITALS: BP 190/78
[2019-12-13] VITALS: BP 132/55
[2019-12-13 08:00] VITALS: BP 171/82
[2019-12-13 16:00] VITALS: BP 153/69
[2019-12-13 20:00] VITALS: BP 106/86
[2019-12-14] VITALS: BP 149/60
[2019-12-14 08:00] VITALS: BP 180/63
[2019-12-14] MEDS ORDERED: DICLOFENAC SOD100 G1 T (09:02)
== END 2019-12-14 11:45 | disposition home health service (06) | DRG 552 ==
LOC: ED 12:54 → 5E 13:50 → EDHOLD 13:50 → 5E 14:45
PROVIDERS: Emergency Medicine; ADMIT Internal Medicine; ATTEND Internal Medicine
DX: M48.00 Spinal stenosis, site unspecified (principal); I10 Essential (primary) hypertension; M19.012 Primary osteoarthritis, left shoulder; M17.0 Bilateral primary osteoarthritis of knee; F41.1 Generalized anxiety disorder; E11.9 Type 2 diabetes mellitus without complications; G89.29 Other chronic pain; M54.5 Low back pain; M19.011 Primary osteoarthritis, right shoulder; R62.7 Adult failure to thrive; Z90.49 Acquired absence of other specified parts of digestive tract; Z82.49 Family history of ischemic heart disease and other diseases of the circulatory system; Z83.3 Family history of diabetes mellitus; Z79.899 Other long term (current) drug therapy; Z68.27 Body mass index [BMI] 27.0-27.9, adult

== ENCOUNTER → 2020-01-17 | Outpatient (CLI) | payer MEDICARE ==
[~2020-01-17] MED LIST changes: +ACTOS15 M1 PO; +DICLOFENAC SOD100 G1 T; +Lovenox40 MG/0.4 PO
== END | disposition home or self-care (01) ==
LOC: MRI 13:00
PROVIDERS: ATTEND Internal Medicine
DX: M47.816 Spondylosis without myelopathy or radiculopathy, lumbar region (principal); M48.061 Spinal stenosis, lumbar region without neurogenic claudication; M48.07 Spinal stenosis, lumbosacral region; M43.17 Spondylolisthesis, lumbosacral region; Z98.890 Other specified postprocedural states

== ENCOUNTER 2020-02-15 12:42 | Inpatient (IN) | payer MEDICARE ==
[~2020-02-15] VITALS: Ht 152.4 cm; Wt 61.4 kg
[~2020-02-15 12:42] MED LIST changes: -Lovenox40 MG/0.4 PO
[2020-02-15 12:49] VITALS: BP 127/49
[2020-02-15 13:46] LABS: MEAN CELL VOLUME 89.5 fl (81.0-99.0); MEAN CORPUSCULAR HGB 27.9 pg (27.0-31.0); MEAN CORPUSCULAR HGB CONC 31.2 g/dl (33.0-37.0); MEAN PLATELET VOLUME 10.3 fl (9.6-12.3); PLATELET COUNT AUTOMATED 281 10*3/uL (130-400); RED CELL DISTRI WIDTH 14.8 % (0-14.5); WHITE BLOOD COUNT 11.5 10*3/uL (4.8-10.8)
[2020-02-15 14:07] LABS: ALBUMIN 2.5 gm/dl (3.1-4.5); ALKALINE PHOSPHATASE 40 U/L (45-117); BUN 52 mg/dl (7-24); CHLORIDE 110 mmol/L (98-107); CREATININE 1.49 mg/dL (0.55-1.02); POTASSIUM 4.7 mmol/L (3.5-5.1); SGOT/AST 35 IU/L (3-35); SGPT/ALT 36 U/L (12-78); SODIUM 140 mmol/L (136-145)
[2020-02-15 14:08] LABS: TROPONIN I < 0.015 ng/ml (<0.045)
[2020-02-15 14:09] LABS: TOTAL CELLS COUNTED 100 #CELLS
[2020-02-15 14:11] LABS: PLATELET SUFFICIENCY NORMAL (NORMAL)
--- NOTE | 2020-02-15 14:20 | NUR ---
PT IS RESTING IN ROOM. NO SIGNS OF ACUTE DISTRESS NOTED AT THIS TIME. WILL CONTINUE TO MONITOR. RUBINA SALAZAR CONTACT FOR PATIENT [phone]
[2020-02-15 16:27] VITALS: BP 160/66
[2020-02-15 16:51] LABS: ABG BASE EXCESS -2.9 mmol/L (-2.0-2.0); ARTERIAL BLOOD GAS PH 7.462 (7.35-7.45)
--- NOTE | 2020-02-15 18:18 | NUR ---
[facility] 89, admitted to , under the services of DEB Schulte DO with a diagnosis of PNEUMONIA. Chief complaint is DENIES AT PRESENT. Patient arrived via bed from ER. Monitor applied. Initial assessment completed. Vital signs taken and recorded. DEB SCHULTE DO notified of admission to the unit. Orders received. See assessment for past medical history, medications and allergies. Patient and/or family oriented to unit. [facility]. Clothing/patient valuable form completed. JOSÉ MIGUEL IGNACIO
[2020-02-15 20:00] VITALS: BP 152/53
[2020-02-15 22:56] LABS: ARTERIAL BLOOD GAS PH 7.457 (7.35-7.45)
--- NOTE | 2020-02-15 23:13 | NUR ---
PATIENT TRANSFERED TO ICU AT THIS TIME. REPORT GIVEN TO ERIC BLANDON.
[2020-02-16] VITALS: BP 186/46
--- NOTE | 2020-02-16 03:18 | NUR ---
PATIENT REMIANS ON BIPAP. 11/12 55% PULSE OX 99%. WILL CONTINUE TO MONITOR.
--- NOTE | 2020-02-16 03:59 | NUR ---
PATIENT COGNOS REPORT DEVELOPER LIGHT TO USE RESTROOM. BIPAP TAKEN OFF AT THIS TIME. 15 LITERS HIGH FLOW PLACED ON. PATIENT ASSISTED TO BSC. PATIENT HELPED BACK INTO BED. PULSE OX 97%. MOIST COUGH NOTED. PATIENT REQUESTING TO TAKE A BREAK FROM THE BIPAP FOR A LITTLE. RESPIRATORY NOTIFIED. BED PLACED IN LOWEST POSITION,CALL LIGHT WITHIN REACH. BED ALARM ON. WILL CONTINUE TO MONITOR.
[2020-02-16 05:57] LABS: ALBUMIN 2.5 gm/dl (3.1-4.5); CREATININE 1.27 mg/dL (0.55-1.02); TOTAL PROTEIN 6.3 gm/dL (6.4-8.2)
[2020-02-16 06:03] LABS: FREE T4 1.03 ng/dl (0.76-1.46); THYROID STIM HORMONE (HS) 0.087 uIU/ml (0.358-4.75)
[2020-02-16 06:14] LABS: HEMATOCRIT 34.5 % (37.0-47.0); MEAN CORPUSCULAR HGB 27.3 pg (27.0-31.0); MEAN PLATELET VOLUME 10.8 fl (9.6-12.3); PLATELET COUNT AUTOMATED 279 10*3/uL (130-400); RED BLOOD COUNT 3.92 10*6/uL (4.10-5.10); RED CELL DISTRI WIDTH 14.6 % (0-14.5); WHITE BLOOD COUNT 11.2 10*3/uL (4.8-10.8)
[2020-02-16 07:21] LABS: TOTAL CELLS COUNTED 100 #CELLS
[2020-02-16 07:22] LABS: BURR CELLS FEW; OVALOCYTES FEW; PLATELET SUFFICIENCY NORMAL (NORMAL)
[2020-02-16 08:00] VITALS: BP 106/63
--- NOTE | 2020-02-16 08:01 | NUR ---
LAB TRENDS FOR GLUCOSE ARE ELEVATED IN AM. PT NOT ON SLIDING SCALE OR DIABETIC MANAGEMENT ORDERS THIS ADMISSION SO FAR. NOTIFIED PT TAKES METFORMIN AT HOME BUT NO CURRENT ORDERS HERE TO MAINTAIN GLUCOSE. SAID HE WOULD ORDER SLIDING SCALE.
--- NOTE | 2020-02-16 08:10 | NUR ---
Faro Dealer in to talk to patient. Patient states lives at home with alone. There are basement steps in the home. Physician: Dr. Jessenia Alvarado Pharmacy: [facility] health services: Previous [facility]. Would like to have [facility] Patient's level of ADLs: MODERATE ASSIST Patient has working utilities: Yes DME: Cane, Walker Follow-up physician's appointment after d/c: patient will make follow up appoitnment Does patient want to access PORTAL?: no Discharge plan Plan discussed with patients son Tomi. He stated she does live alone a few houses down from his but he is there with her breakfast lunch dinner and bed time. He provides the majority of her care. She has had a more difficult time getting around due to a small fx in her hip, but Dr. Saleem stated there's nothing that can be done. She did have [facility] in the past but son stated he no longer wants [facility] he wants her to have [facility]. I discussed the possibility of snf placement upon discharge, son was adamant he will not have her go to snf. When she is discharged she will go home, hopefully to his house for a while with [facility]. Patients son also stated he tested positive for covid at the same time as a patient. . LINO SHIPMAN
--- NOTE | 2020-02-16 08:39 | NUR ---
POX 84% ON 15LHF, PLACED ON NONREBREATHER 15L, POX NOW 98%. ENCOURGAGED BIPAP. SAID SHE WANTED TO WAIT. SPOKE WITH YOMAIRA SANTILLAN, SAID SHE WOULD GO SEE PT AND PLACE HER ON BIPAP.
--- NOTE | 2020-02-16 09:00 | NUR ---
PT. REFUSED TO GO BACK ON BIPAP. STATES SHE NEEDS A BREAK. PT. CURRENTLY ON NRB MASK. SPO2 98%. RESPIRATIONS UNLABORED. RN NOTIFIED.
[2020-02-16 09:31] LABS: FERRITIN 382.4 ng/mL (10.0-291.0); VITAMIN D, 25-HYDROXY 38.3 ng/mL (30-100)
--- NOTE | 2020-02-16 11:11 | NUR ---
IN TO SEE PT
[2020-02-16 12:00] VITALS: BP 110/56
--- NOTE | 2020-02-16 13:36 | NUR ---
NORCO GIVEN FOR COMPLAINTS OF ARTHIRTIC PAIN AND BACK PAIN/ACHING. WILL MONITOR. CALL LIGHT IN REACH. VISITOR AT BEDSIDE.
--- NOTE | 2020-02-16 14:16 | NUR ---
PER PT, KARENA EFFECTIVE. STATES SHE HAS HAD MUCH RELIEF. CALL LIGHT IN REACH. VISITOR STILL AT BEDSIDE. NO VOICED COMPLAINTS.
[2020-02-16 16:00] VITALS: BP 181/59
[2020-02-16 20:00] VITALS: BP 173/71
--- NOTE | 2020-02-16 21:05 | NUR ---
GEORGECO GIVEN FOR COMPLAINTS OF CHRONIC BACK PAIN. CALL [facility] IN REACH, WILL MONITOR FOR EFFECTIVENESS.
--- NOTE | 2020-02-16 21:19 | NUR ---
IN TO SEE PT AND GIVE PM MEDS. ASKED IF PT WOULD TRY THE BIPAP MACHINE AGAIN. STILL REFUSED. SAID SHE DOESNT LIKE IT. EDUCATED AND RE-ENCOURAGED BUT STILL DECLINED. PT REMAINS ON NONREBREATHER AT 15L- 100% POX
--- NOTE | 2020-02-16 22:01 | NUR ---
PER PT, KARENA EFFECTIVE. NO VOICED COMPLAINTS. CALL LIGHT IN REACH.
[2020-02-17] VITALS: BP 179/61
--- NOTE | 2020-02-17 | NUR ---
PATIENT SLEEPING, AWAKES EASILY. DENIES SHORTNESS OF BREATH. NON LABORED BREATHING, HOB ELEVATED. PATIENT ALERT AND ORIENT, ABLE TO FOLLOW DIRECTONS. PATIENT BELONGINGS IN REACH. NON REBREATHER 15L.
--- NOTE | 2020-02-17 04:35 | NUR ---
PATIENT SLEEPING, HOB ELEVATED, NO SIGNS OF DISTRESSED, BREATHING EASY.
[2020-02-17 06:13] LABS: HEMATOCRIT 37.3 % (37.0-47.0); MEAN CELL VOLUME 88.6 fl (81.0-99.0); MEAN CORPUSCULAR HGB 27.8 pg (27.0-31.0); MEAN CORPUSCULAR HGB CONC 31.4 g/dl (33.0-37.0); MEAN PLATELET VOLUME 10.6 fl (9.6-12.3); PLATELET COUNT AUTOMATED 311 10*3/uL (130-400); RED BLOOD COUNT 4.21 10*6/uL (4.10-5.10); RED CELL DISTRI WIDTH 14.5 % (0-14.5); WHITE BLOOD COUNT 12.5 10*3/uL (4.8-10.8)
[2020-02-17 06:14] LABS: ALBUMIN 2.5 gm/dl (3.1-4.5); CREATININE 1.05 mg/dL (0.55-1.02)
[2020-02-17 06:17] LABS: TOTAL PROTEIN 6.7 gm/dL (6.4-8.2)
[2020-02-17 06:48] LABS: OVALOCYTES FEW; PLATELET SUFFICIENCY NORMAL (NORMAL); SCHISTOCYTES FEW; TOTAL CELLS COUNTED 100 #CELLS
[2020-02-17 08:00] VITALS: BP 146/69
[2020-02-17 08:28] LABS: ABG BASE EXCESS 1.3 mmol/L (-2.0-2.0); ARTERIAL BLOOD GAS PH 7.471 (7.35-7.45)
[2020-02-17 12:00] VITALS: BP 188/92
--- NOTE | 2020-02-17 12:06 | NUR ---
MAY FROM ID IN TO SEE PATIENT REGARDING CONSULT.
--- NOTE | 2020-02-17 12:39 | NUR ---
NOTIFIED REGARDING ELEVATED BP. NEW ORDERS TO BE ENTERED PER PHYSICIAN.
--- NOTE | 2020-02-17 15:00 | NUR ---
BP NOW 160/82. WILL CONTINUE TO MONITOR BP. PT ASYMPTOMATIC. CALL LIGHT WITHIN REACH.
[2020-02-17 15:41] VITALS: BP 160/82
[2020-02-17 17:14] VITALS: BP 160/98
[2020-02-17 20:00] VITALS: BP 209/74
--- NOTE | 2020-02-17 20:13 | NUR ---
MEDICATED WITH PO RESTORIL ORDERED PER PT REQUEST FOR C/O INSOMINA.
--- NOTE | 2020-02-17 21:30 | NUR ---
MEDICATION EFFECTIVE FOR INSOMNIA.
[2020-02-18] VITALS: BP 170/75
--- NOTE | 2020-02-18 00:25 | NUR ---
PATIENT ASLEEP, AWAKES EASILY. ALERT AND ORIENT, ABLE TO FOLLOW DIRECTIONS. NO SIGNS OF DISTRESS. 15L ON NON REBREATHER, HOB ELEVATED.
[2020-02-18 06:49] LABS: HEMATOCRIT 35.3 % (37.0-47.0); MEAN CELL VOLUME 86.7 fl (81.0-99.0); MEAN CORPUSCULAR HGB 27.8 pg (27.0-31.0); MEAN PLATELET VOLUME 11.1 fl (9.6-12.3); PLATELET COUNT AUTOMATED 316 10*3/uL (130-400); RED BLOOD COUNT 4.07 10*6/uL (4.10-5.10)
[2020-02-18 07:08] LABS: ALBUMIN 2.3 gm/dl (3.1-4.5); BUN 33 mg/dl (7-24); CHLORIDE 107 mmol/L (98-107); CREATININE 0.94 mg/dL (0.55-1.02); SGOT/AST 31 IU/L (3-35); SGPT/ALT 37 U/L (12-78); SODIUM 139 mmol/L (136-145); TOTAL PROTEIN 6.3 gm/dL (6.4-8.2)
[2020-02-18 07:10] LABS: ALKALINE PHOSPHATASE 52 U/L (45-117); CPK 40 U/L (26-192); LDH 424 U/L (84-246)
[2020-02-18 07:57] LABS: ABG BASE EXCESS 2.3 mmol/L (-2.0-2.0); ARTERIAL BLOOD GAS PH 7.488 (7.35-7.45)
[2020-02-18 08:00] VITALS: BP 160/68
--- NOTE | 2020-02-18 08:00 | NUR ---
OT NOTE Occupational therapy order and nursing screen received. Will follow up with patient for completion of an OT evaluation. Thank you. Cailin Snider, OTR/L
[2020-02-18 08:21] LABS: TOTAL CELLS COUNTED 100 #CELLS
[2020-02-18 08:22] LABS: PLATELET SUFFICIENCY NORMAL (NORMAL)
--- NOTE | 2020-02-18 08:52 | NUR ---
Patient comes in from home with son. Has had home health via [facility] in the past. Patients son states she will not go to snf. She will come home with him however he doesn't want OV, he wants [facility] health upon discharge.
--- NOTE | 2020-02-18 09:02 | NUR ---
PATIENT SITTING UP IN BED, EATING BREAKFAST. ASSISTED PATIENT OOB TO BSC. GOOD APPETITE THIS AM. PATIENT REPOSITIONED IN BED. 15L NRB APPLIED. POX 95%. WILL CONTINUE TO MONITOR. VSS. CALL LIGHT WITHIN REACH.
[2020-02-18 12:00] VITALS: BP 150/98; BP 153/104
--- NOTE | 2020-02-18 14:22 | NUR ---
PHYSICAL THERAPY Physical Therapy evaluation completed on 4E with full evaluation to follow. Moderate complexity PT evaluation per chart review and evaluation, [address]. Recommend physical therapy per plan of care and SNF upon discharge. Thank you for this referral. Thank you. Raegan Mehta,PT,DPT
--- NOTE | 2020-02-18 14:25 | NUR ---
Occupational Therapy evaluation completed on four with full evaluation to follow. Recommend occupational therapy per plan of care and SNF upon discharge. Thank you for this referral. Cailin Snider OTR/L
[2020-02-18 16:00] VITALS: BP 158/62
--- NOTE | 2020-02-18 16:23 | NUR ---
BLOOD SUGAR READING 470. REPEAT TEST DONE PER POLICY. REPEAT BSG 446. PHYSICIAN NOTIFIED. WILL ADMINISTER INSULIN PER S/S.
--- NOTE | 2020-02-18 17:18 | NUR ---
PHYSICAL THERAPY Nursing screen received and chart reviewed. PT evaluation received and completed. Recommend SNF vs. Home health with 24hr care and assist pending progression. Thank you. Raegan Mehta,PT,DPT
[2020-02-18 20:00] VITALS: BP 131/55
[2020-02-19] VITALS: BP 162/66
[2020-02-19 06:30] LABS: HEMATOCRIT 38.5 % (37.0-47.0); MEAN CELL VOLUME 86.9 fl (81.0-99.0); MEAN CORPUSCULAR HGB 27.1 pg (27.0-31.0); MEAN CORPUSCULAR HGB CONC 31.2 g/dl (33.0-37.0); MEAN PLATELET VOLUME 11.5 fl (9.6-12.3); PLATELET COUNT AUTOMATED 296 10*3/uL (130-400); RED BLOOD COUNT 4.43 10*6/uL (4.10-5.10); RED CELL DISTRI WIDTH 13.6 % (0-14.5); WHITE BLOOD COUNT 11.7 10*3/uL (4.8-10.8)
[2020-02-19 06:50] LABS: ALBUMIN 2.3 gm/dl (3.1-4.5); ALKALINE PHOSPHATASE 55 U/L (45-117); BUN 32 mg/dl (7-24); CHLORIDE 107 mmol/L (98-107); CREATININE 0.85 mg/dL (0.55-1.02); POTASSIUM 3.8 mmol/L (3.5-5.1); SGOT/AST 27 IU/L (3-35); SGPT/ALT 36 U/L (12-78); SODIUM 137 mmol/L (136-145); TOTAL PROTEIN 6.1 gm/dL (6.4-8.2)
--- NOTE | 2020-02-19 07:00 | NUR ---
ARRIVED ON SHIFT, REPORT RECEIVED FROM OFFGOING NURSE, ASSUMED CARE OF PATIENT.
[2020-02-19 07:41] LABS: BURR CELLS FEW; OVALOCYTES FEW; PLATELET SUFFICIENCY NORMAL (NORMAL); POLYCHROMASIA SLIGHT; TOTAL CELLS COUNTED 100 #CELLS
--- NOTE | 2020-02-19 07:47 | NUR ---
Shift chart check completed.
[2020-02-19 08:00] VITALS: BP 166/92
[2020-02-19 09:49] LABS: ABG BASE EXCESS 1.2 mmol/L (-2.0-2.0); ARTERIAL BLOOD GAS PH 7.517 (7.35-7.45)
--- NOTE | 2020-02-19 11:25 | NUR ---
PHYSICAL THERAPY Patient seen this am 1;1 for therapy visit and was relaxing supine in bed upon therapist arrival. Patient identified by name / and was joined by OT diploma medical assistant for observation this session. Patient presented with continuous O2, 15L hi flow face mask, recording SpO2 86% prior to treatment and needed face mask adjusted for proper fit to improve breathing. Patient transfers supine to sit EOB with MIN A, tolerating several minutes static EOB sit, SBA x 1, recording SpO2 94%, HR 72 bpm. Patient performed several sit to stand transfers at bedside, CLERICAL ORDER FILLER/MIN, tolerating approx 20-30 seconds static stand prior to quick onset of fatigue. Patient SpO2 84%, HR 81 bpm following standing ex and needed v/c for improve proper breathing technique. Patient returned to supine in bed and remained with call light, tray table, telephone, bed alarm for safety. Will continue per POC as tolerated, total treatment time 16 minutes. Delano Mukherjee, ARCHITECTURAL TECHNOLOGIST
--- NOTE | 2020-02-19 11:40 | NUR ---
OT NOTE Pt was seen this A.M. 1:1 for 20 minute OT session. Upon arrival pt was supine in bed. Pt identified by name and and had no complaints at this time. Pt presented to therapy with 15L high flow via face mask which was not fitting proper, SpO2 reading 86%. After mask was adjusted with proper fit SpO2 now reading 94% and heart rate 67 bpm. Pt transferred supine to sit EOB with Rosina for assist with upper body. While sitting EOB pt's SpO2 dropped to 87%. Pt was educated on pursed lip breathing which she presented with poor carry over. After aprox 60 seconds SpO2 raised to 92%. Pt then completed several sit to stand transfers from bed level with Rosina hand held. Challenged pt's static standing tolerance needed for increased I in self care tasks and functional transfers. Pt was able to tolerate aprox 20-30 seconds at a time before sitting due to quick onset of fatigue and SpO2 reading 84% and heart rate 81 bpm. After aprox 3 minutes SpO2 raised to 90%. Throughout standing tasks pt presented with F- static standing balance. Pt educated on energy conservation techniques and pt voiced understanding however presented with poor carry over. Pt then requested to lay back in bed due to fatigue. There she transferred sit to supine with Rosina and was left with call light in hand, tray table in place, and bed alarm activated for safety. Continue with rec D/C plan to SNF. Throughout entire session airborne precautions were maintained. KLAUS Kenyon/Elena
[2020-02-19 16:00] VITALS: BP 156/62; BP 159/60
[2020-02-19 20:00] VITALS: BP 128/50
[2020-02-20] VITALS: BP 177/60
--- NOTE | 2020-02-20 07:26 | NUR ---
discharge plan at this time remains home with [facility] and son who cares for her.
[2020-02-20 07:59] LABS: ABG BASE EXCESS 1.4 mmol/L (-2.0-2.0); ARTERIAL BLOOD GAS PH 7.5 (7.35-7.45)
[2020-02-20 08:00] VITALS: BP 154/74
--- NOTE | 2020-02-20 09:30 | NUR ---
Patient resting quietly with no c/o discomfort. Respirations easy and regular on NRB mask. Vital signs stable. No overt distress. Isolation precautions maintained. INOCENCIO GERARD R
--- NOTE | 2020-02-20 10:30 | NUR ---
PHYSICAL THERAPY Patient seen this am 1:1 for therapy visit and was relaxing supine in bed upon therapist arrival. Patient identified by name / and presented with continuos hi flow O2-15L via NRB mask. OT environmental emergencies assistant was also present this session for observation as patient recorded resting SpO2 98%, HR 55 bpm. Patient reports no new c/o's at this time and was very pleasant throughout entire treatment. Patient transfers supine to sit EOB with MIN A, tolerating static EOB sit x several minutes to collect herself. Patient recorded EOB sit SpO2 91%, HR 65 bpm, then performed sit to stand, RESIDENTIAL FRAMING CARPENTER/MIN, completing SPT to [facility] with RESIDENTIAL FRAMING CARPENTER/CGA. Patient also transfer from BSC to bedside chair, RESIDENTIAL FRAMING CARPENTER/CGA, including 3-4 fwd / side steps to chair, demonstrating very cautious step sequence. Patient recorded SpO2 90%, HR 64 bpm following transfer and needed brief seated rest secondary to increased fatigue. Following rest break, patient performed seated B LE therex, all planes, AROM x 15 reps each to increase LE strength. Patient remained in bedside chair with feet elevated, call light, tray table, telephone and body alarm for safety. Will continue per POC as tolerated, total treatment time 23 minutes. Delano Mukherjee, CLINICAL FIELD SPECIALIST
--- NOTE | 2020-02-20 10:50 | NUR ---
OT NOTE Pt was seen this A.M. 1:1 for 25 minute OT session. Upon arrival pt was supine in bed. Pt identified by name and and had no complaints at this time. Pt presented to therapy with continuous 15L-O2 via face mask. Pt's resting SpO2 reading 98% and heart rate 55 bpm. Pt transferred supine to sit EOB with Rosina for assist with upper body. Pt was again educated on energy conservation techniques and pursed lip breathing, pt presented with fair carry over. Sit to stand completed from bed level with Rosina X 2 hand held followed by standing pivot from the EOB to the bedside commode with CGA hand held. There she transferred on to the bedside commode with CGA and verbal prompts for proper hand placement. Upon arrival to the bedside commode pt's SpO2 read 91% and heart rate 65 bpm. After a seated rest break pt then completed sit to stand from the bedside commode with Rosina X 2 followed by standing pivot to the recliner with CGA hand held. Throughout pt presented with F- standing balance. Pt was able to tolerate aprox 45 seconds of standing activity this session before sitting due to quick onset of fatigue. Upon arrival to the recliner pt's Spo2 reading 90% and heart rate 64 bpm. Pt was left sitting reclined in the recliner with call light in hand, tray table in place, and body alarm activated for safety. Continue with POC as able. Throughout entire session airborne precautions were maintained. LITO Kenyon
[2020-02-20 12:00] VITALS: BP 150/81
--- NOTE | 2020-02-20 17:33 | NUR ---
PHYSICAL THERAPY CO-SIGN I approve of the Physical Therapy notes written above. MOHAN RADER PT, DPT
[2020-02-20 20:00] VITALS: BP 165/84
--- NOTE | 2020-02-20 21:55 | NUR ---
PT ASSISTED UP TO BEDSIDE COMMODE AND RETURNED TO BED. [id number], SEE EMAR. OXYGEN IN USE. TOLERATED ROUTINE MED WITH NO PROBLEM. CALL LIGHT IN REACH. SEE SHIFT ASSESSMENT.
[2020-02-21] VITALS: BP 152/61
--- NOTE | 2020-02-21 | NUR ---
RESTING IN BED WITH EYES CLOSED. RESP-EASY AND REGULAR. BIPAP IN USE. CALL LIGHT IN REACH. SEE SHIFT ASSESSMENT.
--- NOTE | 2020-02-21 05:30 | NUR ---
TOLERATED ROUTINE MED WITH NO PROBLEM. ASISTED UP TO BSC. OXYGEN IN USE. NO C/O AT THIS TIME. CALL LIGHT IN REACH. BED ALARM ON.
[2020-02-21 06:13] LABS: HEMATOCRIT 37.4 % (37.0-47.0); MEAN CELL VOLUME 86.4 fl (81.0-99.0); MEAN CORPUSCULAR HGB 27.7 pg (27.0-31.0); MEAN CORPUSCULAR HGB CONC 32.1 g/dl (33.0-37.0); MEAN PLATELET VOLUME 10.8 fl (9.6-12.3); PLATELET COUNT AUTOMATED 389 10*3/uL (130-400); RED BLOOD COUNT 4.33 10*6/uL (4.10-5.10); RED CELL DISTRI WIDTH 13.5 % (0-14.5)
[2020-02-21 06:48] LABS: ALBUMIN 2.3 gm/dl (3.1-4.5); CHLORIDE 108 mmol/L (98-107); POTASSIUM 3.7 mmol/L (3.5-5.1); SODIUM 140 mmol/L (136-145)
[2020-02-21 06:54] LABS: ALKALINE PHOSPHATASE 60 U/L (45-117); BUN 34 mg/dl (7-24); CREATININE 0.98 mg/dL (0.55-1.02); LDH 411 U/L (84-246); SGOT/AST 32 IU/L (3-35); SGPT/ALT 45 U/L (12-78); TOTAL PROTEIN 5.9 gm/dL (6.4-8.2)
[2020-02-21 07:50] LABS: BURR CELLS FEW; OVALOCYTES FEW; PLATELET SUFFICIENCY NORMAL (NORMAL); POLYCHROMASIA SLIGHT; TOTAL CELLS COUNTED 100 #CELLS
[2020-02-21 08:00] VITALS: BP 151/60
--- NOTE | 2020-02-21 08:48 | NUR ---
Discharge plan at this time remains the same. When medically stable, discharge to home with [facility] and son. He does not want patient going to a snf, he cared for her prior to hospitalization and will be able to care for her after she is discharged.
[2020-02-21 08:53] LABS: ABG BASE EXCESS 0.7 mmol/L (-2.0-2.0); ARTERIAL BLOOD GAS PH 7.474 (7.35-7.45)
[2020-02-21 12:00] VITALS: BP 185/53
[2020-02-21 16:00] VITALS: BP 140/55
[2020-02-21 20:00] VITALS: BP 146/73
[2020-02-22] VITALS: BP 128/70
--- NOTE | 2020-02-22 01:47 | NUR ---
24 HR chart check completed.
[2020-02-22 06:43] LABS: HEMATOCRIT 36.8 % (37.0-47.0); MEAN CELL VOLUME 87.4 fl (81.0-99.0); MEAN CORPUSCULAR HGB CONC 32.1 g/dl (33.0-37.0); MEAN PLATELET VOLUME 10.6 fl (9.6-12.3); PLATELET COUNT AUTOMATED 307 10*3/uL (130-400); RED BLOOD COUNT 4.21 10*6/uL (4.10-5.10); RED CELL DISTRI WIDTH 13.5 % (0-14.5); WHITE BLOOD COUNT 13.8 10*3/uL (4.8-10.8)
[2020-02-22 07:19] LABS: BUN 30 mg/dl (7-24); CHLORIDE 109 mmol/L (98-107); CREATININE 0.99 mg/dL (0.55-1.02); POTASSIUM 3.7 mmol/L (3.5-5.1); SODIUM 141 mmol/L (136-145)
--- NOTE | 2020-02-22 07:35 | NUR ---
24 HR chart check completed.
[2020-02-22 08:00] VITALS: BP 141/57
[2020-02-22 08:27] LABS: ATYPICAL LYMPHS 1 % (0-0); PLATELET SUFFICIENCY NORMAL (NORMAL); SCHISTOCYTES FEW; TOTAL CELLS COUNTED 100 #CELLS
[2020-02-22 12:00] VITALS: BP 148/64
--- NOTE | 2020-02-22 13:00 | NUR ---
RYLAND BHATIA WITH PATIENT.
--- NOTE | 2020-02-22 17:51 | NUR ---
DENIES ANY NEEDS. 13L HFNC IN PLACE POX 95%. CALL LIGHT WITHIN REACH.
[2020-02-22 20:00] VITALS: BP 153/82
--- NOTE | 2020-02-22 20:41 | NUR ---
24 HR chart check completed.
[2020-02-23] VITALS: BP 122/91
--- NOTE | 2020-02-23 00:11 | NUR ---
PATIENT NOTED WITH WOUND TO LEFT ELBOW. PATIENT STATES IT IS SORE AND IT HAS BEEN SORE SINCE SHE CAME IN. NOTIFIED DR. BROWN. ORDERS RECIEVED TO PLACE WOUND CARE ORDERS AND ELBOW PROTECTORS.
--- NOTE | 2020-02-23 00:31 | NUR ---
SIGN BUILDER NOTIFIED OF PATIENTS NEW WOUND
--- NOTE | 2020-02-23 03:00 | NUR ---
PATIENT SLEEPING, NO DISTRESS NOTED. BREATHING IS EASY AND REGULAR ON 15L HIGH FLOW CANNULA. CALL LIGHT WTIHIN REACH, WILL MONITOR
[2020-02-23 06:43] LABS: HEMATOCRIT 39.9 % (37.0-47.0); MEAN CELL VOLUME 87.3 fl (81.0-99.0); MEAN CORPUSCULAR HGB 27.6 pg (27.0-31.0); MEAN CORPUSCULAR HGB CONC 31.6 g/dl (33.0-37.0); MEAN PLATELET VOLUME 10.9 fl (9.6-12.3); NUCLEATED RED BLOOD CELL 0.1 % (0.0-0.0); PLATELET COUNT AUTOMATED 397 10*3/uL (130-400); RED BLOOD COUNT 4.57 10*6/uL (4.10-5.10); RED CELL DISTRI WIDTH 13.6 % (0-14.5); WHITE BLOOD COUNT 19.5 10*3/uL (4.8-10.8)
[2020-02-23 07:01] LABS: BUN 31 mg/dl (7-24); CHLORIDE 109 mmol/L (98-107); CREATININE 1.03 mg/dL (0.55-1.02); POTASSIUM 3.6 mmol/L (3.5-5.1); SODIUM 140 mmol/L (136-145)
[2020-02-23 08:00] VITALS: BP 165/79
--- NOTE | 2020-02-23 08:30 | NUR ---
Patient resting quietly with no c/o discomfort. Respirations easy and regular. ON 15L HIGHFLO CAN. Vital signs stable. No overt distress. INOCENCIO GERARD R
[2020-02-23 09:02] LABS: PLATELET SUFFICIENCY NORMAL (NORMAL); TOTAL CELLS COUNTED 100 #CELLS
[2020-02-23 12:00] VITALS: BP 142/56
[2020-02-23 16:00] VITALS: BP 145/53
[2020-02-23 20:00] VITALS: BP 142/52
[2020-02-24] VITALS: BP 138/56
--- NOTE | 2020-02-24 03:49 | NUR ---
24 HR chart check completed.
--- NOTE | 2020-02-24 04:48 | NUR ---
UP TO BEDSIDE COMMODE PULSE OX DROPS IN THE 80'S WHEN UP TO BEDSIDE COMMODE THEN INCREASES BACK TO MID 90'S WHEN BACK IN BED.
[2020-02-24 07:24] LABS: ALKALINE PHOSPHATASE 56 U/L (45-117); BUN 30 mg/dl (7-24); CHLORIDE 110 mmol/L (98-107); CREATININE 0.93 mg/dL (0.55-1.02); LDH 385 U/L (84-246); POTASSIUM 3.4 mmol/L (3.5-5.1); SGOT/AST 30 IU/L (3-35); SGPT/ALT 52 U/L (12-78); SODIUM 141 mmol/L (136-145); TOTAL PROTEIN 5.5 gm/dL (6.4-8.2)
[2020-02-24 07:27] LABS: HEMATOCRIT 35.5 % (37.0-47.0); MEAN CELL VOLUME 87.9 fl (81.0-99.0); MEAN CORPUSCULAR HGB 27.7 pg (27.0-31.0); MEAN CORPUSCULAR HGB CONC 31.5 g/dl (33.0-37.0); MEAN PLATELET VOLUME 11.4 fl (9.6-12.3); RED BLOOD COUNT 4.04 10*6/uL (4.10-5.10); RED CELL DISTRI WIDTH 13.4 % (0-14.5); WHITE BLOOD COUNT 14.8 10*3/uL (4.8-10.8)
[2020-02-24 07:42] LABS: PLATELET COUNT AUTOMATED 244 10*3/uL (130-400)
[2020-02-24 08:00] VITALS: BP 149/60
[2020-02-24 08:52] LABS: PLATELET SUFFICIENCY NORMAL (NORMAL); TOTAL CELLS COUNTED 100 #CELLS
[2020-02-24 12:00] VITALS: BP 136/63; BP 138/66
[2020-02-24 16:00] VITALS: BP 140/69
--- NOTE | 2020-02-24 18:42 | NUR ---
I CONSULTED DR. ROBLES VIA CELL PHONE AFTER READING THE PATIENTS MOST CURRENT CXR. THE CXR SHOWED A SMALL LOCULATED PNEUMOTHORAX, DR. ROBLES IS AWARE AT THIS TIME.
[2020-02-24 20:00] VITALS: BP 117/55
--- NOTE | 2020-02-24 20:30 | NUR ---
ASSUMED CARE OF PATIENT. PATIENT IS RESTING IN BED WITH EASY AND REGULAR RESPERS ON 15 O2 VIA NC. ASSESSMENT IS COMPLETE WITH NO C/O OR S/S OF DISTRESS NOTED AT THIS TIME. BED IS LOW, LOCKED, ALARMED, CALL LIGHT IS WITHIN REACH. WILL CONTINUE TO MONITOR, SEE INTERVENTIONS.
[2020-02-25] VITALS: BP 154/53
--- NOTE | 2020-02-25 03:24 | NUR ---
CHART CHECK COMPLETE.
[2020-02-25 06:32] LABS: HEMATOCRIT 34.1 % (37.0-47.0); MEAN CELL VOLUME 86.1 fl (81.0-99.0); MEAN CORPUSCULAR HGB 27.8 pg (27.0-31.0); MEAN CORPUSCULAR HGB CONC 32.3 g/dl (33.0-37.0); MEAN PLATELET VOLUME 11.2 fl (9.6-12.3); PLATELET COUNT AUTOMATED 275 10*3/uL (130-400); RED BLOOD COUNT 3.96 10*6/uL (4.10-5.10); RED CELL DISTRI WIDTH 13.5 % (0-14.5); WHITE BLOOD COUNT 16.5 10*3/uL (4.8-10.8)
[2020-02-25 06:43] LABS: ALBUMIN 2.1 gm/dl (3.1-4.5); BUN 30 mg/dl (7-24); CHLORIDE 110 mmol/L (98-107); CREATININE 0.92 mg/dL (0.55-1.02); POTASSIUM 3.5 mmol/L (3.5-5.1); SGOT/AST 25 IU/L (3-35); SGPT/ALT 56 U/L (12-78); SODIUM 144 mmol/L (136-145); TOTAL PROTEIN 5.4 gm/dL (6.4-8.2)
[2020-02-25 06:44] LABS: ALKALINE PHOSPHATASE 51 U/L (45-117)
[2020-02-25 07:06] LABS: TOTAL CELLS COUNTED 100 #CELLS
[2020-02-25 07:07] LABS: OVALOCYTES FEW
[2020-02-25 07:08] LABS: PLATELET SUFFICIENCY NORMAL (NORMAL)
--- NOTE | 2020-02-25 07:41 | NUR ---
OCCUPATIONAL THERAPY CO-SIGN I approve of the Occupational Therapy notes written above. FERNANDO HERNANDEZ, OTR/L
[2020-02-25 08:00] VITALS: BP 166/59
--- NOTE | 2020-02-25 09:39 | NUR ---
Contacted patients tiana Krishna this AM. He stated he has talked patient into moving in with him as she can't go home alone. Patient agreeable. Also would like [facility] upon discharge. Order received.
--- NOTE | 2020-02-25 09:45 | NUR ---
Received order for home health for [place]. Faxed order/clinicals for referral. Notified D/C patient is not ready, still on 15L oxygen.
--- NOTE | 2020-02-25 09:46 | NUR ---
OT NOTE Pt was seen this A.M. 1:1 for 20 minute OT session. Upon arrival pt was supine in bed. Pt identified by name and and had no complaints at this time. Pt presented to therapy with continuous 15L high flow via NC which she remained on throughout the entire session. Pt's resting SpO2 read 94%. Pt transferred supine to sit EOB with SBA. While sitting EOB pt adjusted B socks with SBA. Sit to stand completed from bed level with CGA and use of w/w for UE support. Challenged pt's static standing tolerance needed for increased I and enhanced endurance. After aprox 30 seconds a sitting rest break was required due to SpO2 dropping to 84% within aprox 20 seconds SpO2 raised to 92%. Standing pivot completed from the EOB to the bedside commode with CGA and use of w/w. There she transferred on to the bedside commode with CGA. Clothing management completed with CGA while standing and toilet hygiene completed with SBA while seated. Pt transferred off bedside commode with CGA and use of w/w followed by standing pivot back to the EOB with CGA and use of w/w. After a seated rest break pt then completed functional mobility to the recliner with CGA and use of w/w. Throughout all tasks pt was educated on pursed lip breathing which pt presented with fair carry over and also educated on energy conservation techniques. Pt was left sitting upright in the recliner with call light in hand, tray table in place, and body alarm activated for safety. Continue with rec D/C plan to SNF. LITO Kenyon
--- NOTE | 2020-02-25 10:47 | NUR ---
PHYSICAL THERAPY [facility] head of bed elevated and bed alarm off. Patient gives informed consent for treatment. Patient was identified by name and on wristband. Patient O2 SAT was initially at 94%. Patient completed supine > sitting on EOB with SBA. Patient's O2 sat was recorded as 84% after transferring supine to sitting on EOB. Patient is on 15 liters of spO2 VIA NASAL CANULA. Patient sat on EOB with SBA. Patient STS from EOB with CGA. Patient required verbal cues for proper technique. Patient stood at Walker 30 seconds x 2 at Walker with CGA. Patient performed seated LAQs, heel/toe raises and marches while sitting on EOB x 10 reps each for strengthening the LEs in order to improve patient's functional mobility. Patient STS from EOB to Walker and she ambulated with Walker with CGA for 5' X 1. Patient's O2 SAT was down into the upper 80s and after she sat in the bedside chair she was back up into the mid 90s on 15 liters of spO2. Patient was left in bedside chair with call light within reach, tray table near patient and chair alarm attached to patient. Patient was 1:1 with this QUENCHING MACHINE OPERATOR for 23 minutes total. PPE protocol for donning and doffing completed as per airborne protocol for + COVID 19 patient. EDDY CAMPOS in the upper 80s and then it recovered
--- NOTE | 2020-02-25 10:58 | NUR ---
Nutritional Support Services Note: Appetite is good for meals, she is eating 100% of most meals. She receives a regular diet as ordered. Wound noted to left elbow. No nutrition intervention needed at this time. Will follow if needed. Will provide pt with a night snack. Aleisha Smith
--- NOTE | 2020-02-25 11:18 | NUR ---
Faxed referral to [facility], waiting on review/acceptance.
[2020-02-25 12:00] VITALS: BP 158/64
--- NOTE | 2020-02-25 13:28 | NUR ---
Discussed LTACH with patients son explained she needs more time to recover. He stated he is familiar with LTACH since his dad was in [place]. He is agreeable but would like to come to the hospital to explain to the patient as she may "freak out". Permission was given by Slim for son to visit. Security and jd edwards developer notified. hospitalists notified of [facility] accpetance for today.
--- NOTE | 2020-02-25 14:10 | NUR ---
Patient is being discharged to [facility] via [place] at 5PM. [facility], wardrobe mistress Melissa and patients tiana Krishna all notified.
[2020-02-25] MEDS ORDERED: Lovenox40 MG/0.4 PO (16:11)
--- NOTE | 2020-02-25 17:48 | NUR ---
PHYSICAL THERAPY Nursing screen received and chart reviewed. PT evaluation complete and patient on PT caseload. Will continue to follow patient. Thank you. Raegan Mehta,PT,DPT
--- NOTE | 2020-02-25 18:17 | NUR ---
PICKED UP AT THIS TIME BY [facility] TO TRANSPORT TO [facility]. REPORT HAS BEEN GIVEN TO RECEIVING NURSE. WOUND PHOTO HAS BEEN TAKEN OF LEFT ELBOW. NO HEPLOCK AT THIS TIME. TAKEN OFF FLOOR VIA CART.
--- NOTE | 2020-02-26 07:37 | NUR ---
OCCUPATIONAL THERAPY CO-SIGN I approve of the Occupational Therapy notes written above. FERNANDO HERNANDEZ, OTR/L
--- NOTE | 2020-02-26 09:35 | NUR ---
PHYSICAL THERAPY CO-SIGN I approve of the Phyical Therapy notes written above. Nereyda Dodd, PT DPT
== END 2020-02-25 18:17 | DRG 177 ==
LOC: ED 12:42 → EDHOLD 15:15 → 4E 15:15 → EDHOLD 15:35 → 4E 17:02
PROVIDERS: Internal Medicine; Internal Medicine Critical Care Medicine; Physician Assistant; ADMIT Internal Medicine; ATTEND Internal Medicine
PROC: XW033E5 Introduction of Remdesivir Anti-infective into Peripheral Vein, Percutaneous Approach, New Technology Group 5 (ICD-10-PCS; principal; 2020-02-15)
PROC: 5A09357 Assistance with Respiratory Ventilation, Less than 24 Consecutive Hours, Continuous Positive Airway Pressure (ICD-10-PCS; 2020-02-16)
PROC: 5A0935A Assistance with Respiratory Ventilation, Less than 24 Consecutive Hours, High Flow/Velocity Cannula (ICD-10-PCS; 2020-02-18)
PROC: 5A0945A Assistance with Respiratory Ventilation, 24-96 Consecutive Hours, High Flow/Velocity Cannula (ICD-10-PCS; 2020-02-23)
DX: U07.1 COVID-19 (principal); J96.01 Acute respiratory failure with hypoxia; J12.89 Other viral pneumonia; E87.2 Acidosis; E44.0 Moderate protein-calorie malnutrition; D68.59 Other primary thrombophilia; N18.32 Chronic kidney disease, stage 3b; D64.9 Anemia, unspecified; R26.2 Difficulty in walking, not elsewhere classified; M54.5 Low back pain; Z51.5 Encounter for palliative care; Z66 Do not resuscitate; I12.9 Hypertensive chronic kidney disease with stage 1 through stage 4 chronic kidney disease, or unspecified chronic kidney disease; E87.8 Other disorders of electrolyte and fluid balance, not elsewhere classified; E11.65 Type 2 diabetes mellitus with hyperglycemia; E78.5 Hyperlipidemia, unspecified; F41.1 Generalized anxiety disorder; Z90.49 Acquired absence of other specified parts of digestive tract; Z79.82 Long term (current) use of aspirin; Z79.1 Long term (current) use of non-steroidal anti-inflammatories (NSAID); Z68.26 Body mass index [BMI] 26.0-26.9, adult; Z79.899 Other long term (current) drug therapy; Z79.01 Long term (current) use of anticoagulants; Z87.81 Personal history of (healed) traumatic fracture